=== PATIENT | male | born 1970 | race African-American/Black ===

== ENCOUNTER 2018-06-10 14:11 | Inpatient (IN) ==
[2018-06-10 16:09] LABS: Baso # (Auto) 0.1 th/mm3 (0.0-0.2); Baso % (Auto) 0.9 % (0.0-2.0); Eos % (Auto) 0.6 % (0.0-4.0); Hematocrit 51.3 % (39.0-51.0); Hemoglobin 17.3 gm/dL (13.0-17.0); Lymph # (Auto) 1.4 th/mm3 (1.0-4.8); Lymph % (Auto) 20.6 % (9.0-44.0); Mean Corpuscular HGB Conc 33.7 % (32.0-36.0); Mean Corpuscular Hemoglobin 29.7 pg (27.0-34.0); Mean Corpuscular Volume 88.3 fL (80.0-100.0); Mean Platelet Volume 9.1 fL (7.0-11.0); Mono # (Auto) 0.6 th/mm3 (0.0-0.9); Mono % (Auto) 8.2 % (0.0-8.0); Neut # (Auto) 4.8 th/mm3 (1.8-7.7); Neut % (Auto) 69.7 % (16.0-70.0); Platelet Count 255 th/mm3 (150-450); Red Blood Count 5.82 mil/mm3 (4.50-5.90); Red Cell Distribution Width 13.4 % (11.6-17.2); White Blood Count 6.9 th/mm3 (4.0-11.0)
[2018-06-10 16:39] LABS: Albumin 4.3 g/dL (3.4-5.0); Anion Gap 11 meq/L (5-15); Aspartate Aminotransferase 25 U/L (15-37); Blood Urea Nitrogen 27 mg/dL (7-18); Calcium 9.5 mg/dL (8.5-10.1); Carbon Dioxide 25.7 meq/L (21.0-32.0); Chloride 106 meq/L (98-107); Glomerular Filtration Rate 40 mL/min (>89); Glucose,Random 115 mg/dL (74-106); Magnesium 2.8 mg/dL (1.5-2.5); Potassium 3.3 meq/L (3.5-5.1); Sodium 143 meq/L (136-145)
[2018-06-10 16:45] LABS: Alanine Aminotransferase 30 U/L (12-78); Alkaline Phosphatase 88 U/L (45-117); Creatine Kinase 581 U/L (39-308); Total Protein 8.7 g/dL (6.4-8.2)
[2018-06-10] MEDS ORDERED: Sod Chloride 0.9% Inj 1,000 ML IV.SIG ONE ×2 (16:46→18:10)
--- NOTE | 2018-06-10 16:50 | CT ---
EXAM DATE: 06/10/2018 4:31 PM EDT AGE/SEX: 47 years / Male INDICATIONS: Has fallen numerous times over the past weak, increased left sided weakness and slurred speech. CLINICAL DATA: This is the patient's initial encounter. Patient reports that signs and symptoms have been present for 1 week and indicates a pain score of Nonresponsive. MEDICAL/SURGICAL HISTORY: Hypertension. CVA four years ago. . RADIATION DOSE: 43.36 CTDI (mGy) COMPARISON: No prior exams available for comparison. TECHNIQUE: CT of the head without contrast. Using automated exposure control and adjustment of the mA and/or kV according to patient size, radiation dose was kept as low as reasonably achievable to ob tain optimal diagnostic quality images. DICOM format image data is available electronically for revi ew and comparison. FINDINGS: Cerebrum: The ventricles are normal for age. There is decreased density in the cerebral white matter . There appears to be an old lacunar infarct at the anterior right thalamus. No evidence of midline s hift, mass lesion, hemorrhage or acute infarction. No extraaxial fluid collections are seen. Posterior Fossa: The cerebellum and brainstem are intact. The 4th ventricle is midline. The cerebe llopontine angle is unremarkable. Extracranial: The visualized portion of the orbits is intact. Skull: The calvaria is intact. No evidence of skull fracture. CONCLUSION: 1. No acute abnormality seen. No areas of hemorrhage or mass effect are seen. 2. Decreased density in the periventricular white matter related to fairly widespread demyelination. 3. Old lacunar infarct at the right thalamus. Electronically signed by: Carroll Wilson MD 06/10/2018 4:49 PM EDT
[2018-06-10 16:56] LABS: CKMB Percent 0.6 % (0.0-4.0); Creatine Kinase MB 3.6 ng/mL (0.5-3.6)
--- NOTE | 2018-06-10 16:59 | ED ---
HPI General Stated complaint: Poss stroke Time Seen by Provider: 06/10/18 15:27 Source: patient and family Mode of arrival: ambulatory Limitations: physical limitation History of Present Illness HPI narrative: Patient is a 47-year-old male presenting to emerge from it with his mother for evaluation of increased falls. Patient has a history of CVA, he has residual left-sided weakness. Mother states she found him on the floor 2 days ago. Mother also reports that he has been laying in bed more and not getting up and doing what he normally would do. Patient denies any complaints at this time. Patient normally ambulates with a cane. Patient is a poor historian. Patient denies any complaints at this time. Onset (ago): week(s) Related Data Home Medications Medication Instructions Recorded Confirmed amlodipine 10 mg PO DAILY 06/10/18 06/10/18 hydrochlorothiazide 25 mg PO QAM 06/10/18 06/10/18 lisinopril 40 mg PO DAILY 06/10/18 06/10/18 Allergies Allergy/AdvReac Type Severity Reaction Status Date / Time No Known Allergies Allergy Unverified 06/10/18 15:32 Review of Systems Except as stated in HPI: all other systems reviewed are negative [facility] Medical History Medical History Hypertension (Acute) Stroke (Acute) Social History Social History Substance History: No History of Abuse Second Hand Smoke Exposure: No Smoking Status: Former smoker Tobacco Type: Cigarettes How Often Do You Have a Drink Containing Alcohol: 2 to 4 times a month Recent Travel in [facility] within the Last 8 Weeks: No Recent Out of Country Travel within the Last 8 Weeks: No Immunization History Tetanus Immunization: Unsure Hx Influenza Vaccine This Season: Yes Exam Narrative Exam Narrative: GENERAL: Well-developed, well-nourished, well-appearing male. Presenting in no acute distress. SKIN: Focused skin assessment warm/dry. HEAD: Atraumatic. Normocephalic. EYES: Pupils equal and round. No scleral icterus. No injection or drainage. ENT: No nasal bleeding or discharge. Mucous membranes pink and moist. NECK: Trachea midline. No JVD. CARDIOVASCULAR: Regular rate and rhythm. No murmur appreciated. RESPIRATORY: No accessory muscle use. Clear to auscultation. Breath sounds equal bilaterally. GASTROINTESTINAL: Abdomen soft, non-tender, nondistended. Hepatic and splenic margins not palpable. MUSCULOSKELETAL: No obvious deformities. No clubbing. No cyanosis. No edema. NEUROLOGICAL: Awake and alert. 3-5 strength on the left upper and lower extremities. Left residual facial drooping. 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 PSYCHIATRIC: Inappropriate mood and affect; insight and judgment normal. Course Initial Documented Vital Signs Temperature 98.9 F 06/10/18 14:25 Pulse Rate 99 H 06/10/18 14:25 Respiratory Rate 16 06/10/18 14:25 Blood Pressure 131/66 06/10/18 14:25 Pulse Oximetry 98 06/10/18 14:25 Last Documented Vital Signs Temperature 98.1 F 06/12/18 12:00 Pulse Rate 77 06/12/18 12:00 Respiratory Rate 16 06/12/18 12:00 Blood Pressure 164/101 H 06/12/18 12:00 Pulse Oximetry 98 06/12/18 12:00 Medical Decision Making [facility] Narrative Medical decision making narrative: Patient presented with his mother for evaluation of increased falls. Patient with residual left-sided weakness. Labs imaging ordered and pending. Labs reviewed, BUN and creatinine elevated /.18, we have no recent priors to compare to at this time we will assume is a new finding. Potassium 3.3, patient was given oral replacement. CT is unremarkable. Due to increased falls , weakness and acute kidney injury patient be admitted. Discussed with my attending physician. Lab Data Lab results reviewed: Yes I reviewed the patient's lab results. Result diagrams: 06/11/18 07:10 06/12/18 07:33 Lab Results 06/10/18 06/10/18 06/10/18 Range/Units 15:46 15:46 15:46 WBC 6.9 (4.0-11.0) th/mm3 RBC 5.82 (4.50-5.90) mil/mm3 Hgb 17.3 H (13.0-17.0) gm/dL Hct 51.3 H (39.0-51.0) % MCV 88.3 (80.0-100.0) fL MCH 29.7 (27.0-34.0) pg MCHC 33.7 (32.0-36.0) % RDW 13.4 (11.6-17.2) % Plt Count 255 (150-450) th/mm3 MPV 9.1 (7.0-11.0) fL Prelim Diff (Auto) Slide review pending Neut % (Auto) 69.7 (16.0-70.0) % Lymph % (Auto) 20.6 (9.0-44.0) % [place] % (Auto) 8.2 H (0.0-8.0) % Eos % (Auto) 0.6 (0.0-4.0) % Baso % (Auto) 0.9 (0.0-2.0) % Neut # (Auto) 4.8 (1.8-7.7) th/mm3 Lymph # (Auto) 1.4 (1.0-4.8) th/mm3 [place] # (Auto) 0.6 (0.0-0.9) th/mm3 Eos # (Auto) 0.0 (0.0-0.4) th/mm3 Baso # (Auto) 0.1 (0.0-0.2) th/mm3 WBC Differential . Diff Scan Auto diff confirmed Differential Comment . Sodium 143 (136-145) meq/L Potassium 3.3 L (3.5-5.1) meq/L Chloride 106 (98-107) meq/L Carbon Dioxide 25.7 (21.0-32.0) meq/L Anion Gap 11 (5-15) meq/L BUN 27 H (7-18) mg/dL Creatinine 2.18 H (0.60-1.30) mg/dL Estimated GFR 40 L (>89) mL/min Random Glucose 115 H (74-106) mg/dL Hemoglobin A1c (4.3-6.0) % Calcium 9.5 (8.5-10.1) mg/dL Magnesium 2.8 H (1.5-2.5) mg/dL Total Bilirubin 0.7 (0.2-1.0) mg/dL AST 25 (15-37) U/L ALT 30 (12-78) U/L Alkaline Phosphatase 88 (45-117) U/L Total Creatine Kinase 581 H (39-308) U/L CK-MB (CK-2) 3.6 (0.5-3.6) ng/mL CK-MB (CK-2) % 0.6 (0.0-4.0) % Troponin I Less than 0.02 L (0.02-0.05) ng/mL Total Protein 8.7 H (6.4-8.2) g/dL Albumin 4.3 (3.4-5.0) g/dL Triglycerides (42-150) mg/dL Cholesterol (120-200) mg/dL LDL Cholesterol, Calc (0-99) mg/dL HDL Cholesterol (40.0-60.0) mg/dL Cholesterol/HDL Ratio Ratio Urine Color (Yellw/Straw) Urine Clarity (Clear) Urine pH (5.0-8.5) Ur Specific [place] (1.002-1.035) Urine Protein (Neg-Trace) mg/dL Urine Glucose (UA) (Negative) mg/dL Urine Ketones (Negative) mg/dL Urine Occult Blood (Negative) Urine Nitrate (Negative) Urine Bilirubin (Negative) Urine Urobilinogen (Less than 2) mg/dL Ur Leukocyte Esterase (Negative) Urine RBC (0-3) /hpf Urine WBC (0-5) /hpf Ur Squamous Epith Cells (0-5) /hpf Hyaline Casts (0-3) /lpf Granular Casts (None) /lpf Urine Mucus (Occasional) /lpf Micro UA Comment Urine Culture Comments Serum Alcohol Less than 3 (0-5) mg/dL 06/10/18 06/11/18 06/11/18 Range/Units 23:10 07:10 07:10 WBC 4.2 (4.0-11.0) th/mm3 RBC 4.95 (4.50-5.90) mil/mm3 Hgb 14.9 D (13.0-17.0) gm/dL Hct 43.9 (39.0-51.0) % MCV 88.7 (80.0-100.0) fL MCH 30.2 (27.0-34.0) pg MCHC 34.0 (32.0-36.0) % RDW 13.6 (11.6-17.2) % Plt Count 195 (150-450) th/mm3 MPV 8.5 (7.0-11.0) fL Prelim Diff (Auto) Neut % (Auto) 54.3 (16.0-70.0) % Lymph % (Auto) 33.8 (9.0-44.0) % [place] % (Auto) 8.7 H (0.0-8.0) % Eos % (Auto) 1.9 (0.0-4.0) % Baso % (Auto) 1.3 (0.0-2.0) % Neut # (Auto) 2.3 (1.8-7.7) th/mm3 Lymph # (Auto) 1.4 (1.0-4.8) th/mm3 [place] # (Auto) 0.4 (0.0-0.9) th/mm3 Eos # (Auto) 0.1 (0.0-0.4) th/mm3 Baso # (Auto) 0.1 (0.0-0.2) th/mm3 WBC Differential . Diff Scan Differential Comment Auto diff final Sodium 144 (136-145) meq/L Potassium 3.3 L (3.5-5.1) meq/L Chloride 108 H (98-107) meq/L Carbon Dioxide 28.7 (21.0-32.0) meq/L Anion Gap 7 (5-15) meq/L BUN 22 H (7-18) mg/dL Creatinine 1.50 H (0.60-1.30) mg/dL Estimated GFR 61 L (>89) mL/min Random Glucose 102 (74-106) mg/dL Hemoglobin A1c (4.3-6.0) % Calcium 8.9 (8.5-10.1) mg/dL Magnesium (1.5-2.5) mg/dL Total Bilirubin (0.2-1.0) mg/dL AST (15-37) U/L ALT (12-78) U/L Alkaline Phosphatase (45-117) U/L Total Creatine Kinase (39-308) U/L CK-MB (CK-2) (0.5-3.6) ng/mL CK-MB (CK-2) % (0.0-4.0) % Troponin I (0.02-0.05) ng/mL Total Protein (6.4-8.2) g/dL Albumin (3.4-5.0) g/dL Triglycerides (42-150) mg/dL Cholesterol (120-200) mg/dL LDL Cholesterol, Calc (0-99) mg/dL HDL Cholesterol (40.0-60.0) mg/dL Cholesterol/HDL Ratio Ratio Urine Color Ele (Yellw/Straw) Urine Clarity Hazy H (Clear) Urine pH 5.0 (5.0-8.5) Ur Specific [place] 1.027 (1.002-1.035) Urine Protein 30 H (Neg-Trace) mg/dL Urine Glucose (UA) Negative (Negative) mg/dL Urine Ketones 20 (Negative) mg/dL Urine Occult Blood Negative (Negative) Urine Nitrate Negative (Negative) Urine Bilirubin Negative (Negative) Urine Urobilinogen 2.0 H (Less than 2) mg/dL Ur Leukocyte Esterase Negative (Negative) Urine RBC 2 (0-3) /hpf Urine WBC 3 (0-5) /hpf Ur Squamous Epith Cells <1 (0-5) /hpf Hyaline Casts 34 (0-3) /lpf Granular Casts 7 (None) /lpf Urine Mucus Few H (Occasional) /lpf Micro UA Comment Culture not ind Urine Culture Comments Culture not ind Serum Alcohol (0-5) mg/dL 06/11/18 06/11/18 06/12/18 Range/Units 07:10 07:10 07:33 WBC (4.0-11.0) th/mm3 RBC (4.50-5.90) mil/mm3 Hgb (13.0-17.0) gm/dL Hct (39.0-51.0) % MCV (80.0-100.0) fL MCH (27.0-34.0) pg MCHC (32.0-36.0) % RDW (11.6-17.2) % Plt Count (150-450) th/mm3 MPV (7.0-11.0) fL Prelim Diff (Auto) Neut % (Auto) (16.0-70.0) % Lymph % (Auto) (9.0-44.0) % [place] % (Auto) (0.0-8.0) % Eos % (Auto) (0.0-4.0) % Baso % (Auto) (0.0-2.0) % Neut # (Auto) (1.8-7.7) th/mm3 Lymph # (Auto) (1.0-4.8) th/mm3 [place] # (Auto) (0.0-0.9) th/mm3 Eos # (Auto) (0.0-0.4) th/mm3 Baso # (Auto) (0.0-0.2) th/mm3 WBC Differential Diff Scan Differential Comment Sodium 145 (136-145) meq/L Potassium 3.9 (3.5-5.1) meq/L Chloride 112 H (98-107) meq/L Carbon Dioxide 25.7 (21.0-32.0) meq/L Anion Gap 7 (5-15) meq/L BUN 14 (7-18) mg/dL Creatinine 1.38 H (0.60-1.30) mg/dL Estimated GFR 67 L (>89) mL/min Random Glucose 77 (74-106) mg/dL Hemoglobin A1c 5.3 (4.3-6.0) % Calcium 8.7 (8.5-10.1) mg/dL Magnesium (1.5-2.5) mg/dL Total Bilirubin (0.2-1.0) mg/dL AST (15-37) U/L ALT (12-78) U/L Alkaline Phosphatase (45-117) U/L Total Creatine Kinase (39-308) U/L CK-MB (CK-2) (0.5-3.6) ng/mL CK-MB (CK-2) % (0.0-4.0) % Troponin I (0.02-0.05) ng/mL Total Protein (6.4-8.2) g/dL Albumin (3.4-5.0) g/dL Triglycerides 106 (42-150) mg/dL Cholesterol 131 (120-200) mg/dL LDL Cholesterol, Calc 69 (0-99) mg/dL HDL Cholesterol 40.5 (40.0-60.0) mg/dL Cholesterol/HDL Ratio 3.23 Ratio Urine Color (Yellw/Straw) Urine Clarity (Clear) Urine pH (5.0-8.5) Ur Specific [place] (1.002-1.035) Urine Protein (Neg-Trace) mg/dL Urine Glucose (UA) (Negative) mg/dL Urine Ketones (Negative) mg/dL Urine Occult Blood (Negative) Urine Nitrate (Negative) Urine Bilirubin (Negative) Urine Urobilinogen (Less than 2) mg/dL Ur Leukocyte Esterase (Negative) Urine RBC (0-3) /hpf Urine WBC (0-5) /hpf Ur Squamous Epith Cells (0-5) /hpf Hyaline Casts (0-3) /lpf Granular Casts (None) /lpf Urine Mucus (Occasional) /lpf Micro UA Comment Urine Culture Comments Serum Alcohol (0-5) mg/dL Imaging Data Radiologist's impression: Head CT 06/10/18 15:40 CONCLUSION: 1. No acute abnormality seen. No areas of hemorrhage or mass effect are seen. 2. Decreased density in the periventricular white matter related to fairly widespread demyelination. 3. Old lacunar infarct at the right thalamus. Carotid Doppler Study 06/11/18 00:00 CONCLUSION: Abnormal left carotid. CT angiography may be of benefit to evaluate the arch and left carotid bifurcation. Head MRI 06/11/18 00:00 CONCLUSION: Small punctate area of acute infarction. At the pompa-white junction in the posterior right temporal region characteristic of acute infarct There is extensive restricted diffusion involving the corpus callosum on the left side. This is unusual for typical vascular disease and considering the extensive white matter abnormalities this may reflect multiple sclerosis. Correlation with clinical findings is recommended. Neck MRA 06/11/18 00:00 CONCLUSION: 1. Both the right and left carotid appear patent. There is no hemodynamically significant stenosis. 2. Extreme tortuosity was compromising the ultrasound exam. _ Percent stenosis is calculated using the diameter of the stenotic region over the diameter of the normal distal internal carotid artery _ Reviewed radiologists report. Discharge Plan Discharge Disposition Patient Disposition: 30 Still Patient Discharge Condition Condition: Stable Discharge Details Diagnosis: Weakness, SINGH (acute kidney injury), Frequent falls, Hypokalemia Physicians Team ED Provider: Jasper Haq ED Midlevel Provider: Karin Max Primary Care Provider: UNKNOWN, Attending Provider: Libby Joaquin Other Providers: Francisca Belcher ; [facility],Insurance Status ED Status: Left Department Discharge Information Discharge Date/Time: 06/10/18 20:58
--- NOTE | 2018-06-10 19:49 | P.HPFP ---
History of Present Illness Primary Care Physician: UNKNOWN History of Present Illness: Patient is a 47 year old M with pmhx of CVA with residual left sided weakness who presents to the ED for evaluation of increased falls. Patient reports a 1 day history of not feeling like himself and a feeling of unsteadiness. This feeling began earlier this morning. Although he now feels more like himself he still feels uneasy and will not attempt to walk for fear of falling. Patient lives with his cousin who works in the medical field and suggested he seek medial attention. Patient reports dizziness earlier today that self resolved after a few minutes, experienced momentary double vision in his left eye but at no time loss any motor function, sensation, or consciousness. He reports no falls today and denies any chest pain, recent illnesses, nausea, vomiting, fevers or chills. - Diagnosis (1) Weakness (2) SINGH (acute kidney injury) (3) Frequent falls (4) Hypokalemia (5) Nutrition, metabolism, and development symptoms Inpatient Certification: I certify that the inpatient services were ordered in accordance with Medicare regulations governing the order. This includes certification that hospital inpatient services are reasonable and necessary and in the case of services not specified as inpatient-only under 42 CFR 419.22(n), that they are appropriately provided as inpatient services in accordance to with the 2-midnight benchmark under 43 CFR 412.3(e) Review of Systems Constitutional: Denies chills, Denies excessive sweating, Denies fatigue, Denies fever(s), Denies headache(s), Denies malaise Eyes: Reports change in vision, Reports double vision, Denies blind spots, Denies floaters, Denies loss of vision, Denies pain Cardiovascular: Denies chest pain, Denies excessive sweating, Denies fainting, Denies fast heart rate, Denies irregular heart rhythm, Denies rapid, pounding, or irregular heartbeat, Denies shortness of breath Respiratory: Denies chest congestion, Denies cough, Denies shortness of breath, Denies shortness of breath with activity, Denies wheezing Gastrointestinal: Denies abdominal pain, Denies change in bowel habits, Denies incontinent of stools, Denies vomiting Musculoskeletal: Reports abnormal walking, Reports muscle weakness, Denies body aches Comments: Patient reports feeling unsteady and has reported frequent recent falls. Neurologic: Reports abnormal walking, Reports dizziness, Reports frequent falls , Reports other visual disturbances, Reports unsteadiness, Reports weakness, Denies abnormal hearing, Denies abnormal movements, Denies abnormal speech, Denies behavioral changes, Denies burning sensations, Denies confusion, Denies headache(s), Denies memory loss, Denies numbness, Denies convulsions, Denies seizure-like activity, Denies sensory deficit, Denies tremor(s) Psychiatric: Denies hearing things others do not hear Endocrine: Denies rapid, pounding, or irregular heartbeat PMFSH - History History Provided By: Patient, Family Member - Medical History Medical History: Medical History (Last Reviewed 06/10/18 @ 16:58 by BEE Wisdom) Hypertension Stroke - Tobacco History Second Hand Smoke Exposure: No Tobacco Use In Past 30 Days: No Smoking Status: Former smoker - Alcohol History How Often Do You Have a Drink Containing Alcohol: 2 to 4 times a month - Substance Use History Substance History: No History of Abuse - Travel History Recent Travel in the [facility] Within the Last 8 Weeks: No Recent Travel Out of the Country Within the Last 8 Weeks: No - Immunization History Tetanus Immunization: Unsure Hx Influenza Vaccine This Season: Yes Medications and Allergies Active Medications: Active Medications Sodium Chloride (Ns Flush) 2 ml IV.FLUSH PRN PRN PRN Reason: FLUSH AFTER USING IV ACCESS Allergies Allergy/AdvReac Type Severity Reaction Status Date / Time No Known Allergies Allergy Unverified 06/10/18 15:32 Home Medications Medication Instructions Recorded Confirmed Type amlodipine 10 mg PO DAILY 06/10/18 06/10/18 History hydrochlorothiazide 25 mg PO QAM 06/10/18 06/10/18 History lisinopril 40 mg PO DAILY 06/10/18 06/10/18 History Exam Vital signs: Vital Signs 06/10/18 14:25 06/10/18 14:37 06/10/18 18:34 Temperature 98.9 F Pulse Rate 99 H 64 Respiratory Rate 16 Blood Pressure 131/66 121/68 Pulse Oximetry 98 98 100 Intake & Output 06/10/18 06/10/18 06/11/18 06:59 18:59 06:59 Weight 76.204 kg - Constitutional no acute distress, average body habitus, cooperative - Routine HEENT Exam Head: Present: normocephalic, atraumatic Eye: Present: EOMI, PERRL, normal accommodation ENT: Present: mucous membranes moist, external ear normal. Absent: mucous membranes dry - Routine Neck Exam Present: trachea midline. Absent: lymphadenopathy, tenderness, trauma - Routine Respiratory Exam Present: CTA bilaterally. Absent: accessory muscle use, decreased breath sounds , prolonged expiratory phase, rales, respiratory distress, rhonchi, stridor, wheezes, crackles, distant breath sounds, diminished air movement - Routine Cardiovascular Exam Present: RRR, S1, S2. Absent: murmur, gallop, rubs, irregularly irregular - Routine Abdominal Exam Present: soft, normoactive bowel sounds. Absent: tenderness, distended, rebound , guarding, organomegaly - Routine Extremities Exam Present: pulses intact. Absent: calf tenderness - Routine Skin Exam Present: intact. Absent: cyanosis, erythema - Routine Neurological Exam Present: alert, oriented X3, motor deficit, moving all extremities, vision grossly intact, hearing grossly intact, facial asymmetry. Absent: CN II-XII intact, altered mental status, normal tone, normal speech Patient demonstrates left facial droop due to residual motor deficit from previous CVA. 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 All extremeties functional at baseline. Patient stated that he would not attempt to stand or walk. - Detailed Neurological Exam: Coma Scale Eye Opening: Spontaneous Verbal Response: Oriented Motor Response: Obey commands Tita Coma Scale Total: 15 - Routine Psychiatric Exam Present: normal thought process, cooperative. Absent: anxious, agitated Results - Labs Result diagrams: 06/10/18 15:46 06/10/18 15:46 Abnormal lab results 06/10/18 06/10/18 Range/Units 15:46 15:46 Hgb 17.3 H (13.0-17.0) gm/dL Hct 51.3 H (39.0-51.0) % [place] % (Auto) 8.2 H (0.0-8.0) % Potassium 3.3 L (3.5-5.1) meq/L BUN 27 H (7-18) mg/dL Creatinine 2.18 H (0.60-1.30) mg/dL Estimated GFR 40 L (>89) mL/min Random Glucose 115 H (74-106) mg/dL Magnesium 2.8 H (1.5-2.5) mg/dL Total Creatine Kinase 581 H (39-308) U/L Troponin I Less than 0.02 L (0.02-0.05) ng/mL Total Protein 8.7 H (6.4-8.2) g/dL Short CBC 06/10/18 Range/Units 15:46 WBC 6.9 (4.0-11.0) th/mm3 Hgb 17.3 H (13.0-17.0) gm/dL Hct 51.3 H (39.0-51.0) % Plt Count 255 (150-450) th/mm3 BMP 06/10/18 15:46 Sodium 143 Potassium 3.3 L Chloride 106 Carbon Dioxide 25.7 BUN 27 H Creatinine 2.18 H Calcium 9.5 Cardiac Enzymes 06/10/18 Range/Units 15:46 Total Creatine Kinase 581 H (39-308) U/L CK-MB (CK-2) 3.6 (0.5-3.6) ng/mL Troponin I Less than 0.02 L (0.02-0.05) ng/mL Liver Function 06/10/18 Range/Units 15:46 Total Bilirubin 0.7 (0.2-1.0) mg/dL AST 25 (15-37) U/L ALT 30 (12-78) U/L Alkaline Phosphatase 88 (45-117) U/L Albumin 4.3 (3.4-5.0) g/dL - Imaging Impressions Head CT 06/10/18 15:40 CONCLUSION: 1. No acute abnormality seen. No areas of hemorrhage or mass effect are seen. 2. Decreased density in the periventricular white matter related to fairly widespread demyelination. 3. Old lacunar infarct at the right thalamus. Caprini VTE Risk Assessment Caprini VTE Risk Assessment: Moderate/High Risk (score >= 2) Caprini Risk Assessment Model: Point Value = 1 Point Value = 2 Point Value = 3 Point Value = 5 Age 41-60 Minor surgery BMI > 25 kg/m2 Swollen legs Varicose veins or History of unexplained or recurrent spontaneous Oral contraceptives or hormone replacement Sepsis (< 1 month) Serious lung disease, including pneumonia (< 1 month) Abnormal pulmonary function Acute myocardial infarction Congestive heart failure (< 1 month) History of inflammatory bowel disease Medical patient at bed rest Age 61-74 Arthroscopic surgery Major open surgery (> 45 min) Laparoscopic surgery (> 45 min) Malignancy Confined to bed (> 72 hours) Immobilizing plaster cast Central venous access Age >= 75 History of VTE Family history of VTE Factor V Leiden Prothrombin [id number] Lupus anticoagulant Anticardiolipin antibodies Elevated serum homocysteine Heparin-induced thrombocytopenia Other congenital or acquired thrombophilia Stroke (< 1 month) Elective arthroplasty Hip, pelvis, or leg fracture Acute spinal cord injury (< 1 month) Prophylaxis Regimen: Total Risk Factor Score Risk Level Prophylaxis Regimen 0-1 Low Early ambulation 2 Moderate Order ONE of the following: *Sequential Compression Device (SCD) *Heparin 5000 units SQ BID 3-4 Higher Order ONE of the following medications: *Heparin 5000 units SQ TID *Enoxaparin/Lovenox 40 mg SQ daily (WT < 150 kg, CrCl > 30 mL/min) *Enoxaparin/Lovenox 30 mg SQ daily (WT < 150 kg, CrCl > 10-29 mL/min) *Enoxaparin/Lovenox 30 mg SQ BID (WT < 150 kg, CrCl > 30 mL/min) AND/OR *Sequential Compression Device (SCD) 5 or more Highest Order ONE of the following medications: *Heparin 5000 units SQ TID (Preferred with Epidurals) *Enoxaparin/Lovenox 40 mg SQ daily (WT < 150 kg, CrCl > 30 mL/min) *Enoxaparin/Lovenox 30 mg SQ daily (WT < 150 kg, CrCl > 10-29 mL/min) *Enoxaparin/Lovenox 30 mg SQ BID (WT < 150 kg, CrCl > 30 mL/min) AND *Sequential Compression Device (SCD) Assessment and Plan - Assessment (1) Weakness Code(s): R53.1 - Weakness Status: Acute Plan: Patient presents with generalized feeling of weakness and feeling of "not feeling like myself". 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 At the time of interview mother was not present and patient's history was a times questionable. It is unknown at this time whether there is any new motor, sensory, or executive function deficit. Although a hemorrhagic stroke is not likely due to imaging an ischemic stroke cannot be ruled out. Arrhythmias can also cause momentary syncope as well as orthostatic hypotension. Patient to be worked up with neurologically and cardiovascularly. Patient admitted and out on telemetry. - Trend Troponin - Follow up with ECG - Follow up with Echo - Follow Carotid Doppler - Follow up brain MRI without contrast - Monitor BP - PT Eval and recommendations appreciated (2) SINGH (acute kidney injury) Code(s): N17.9 - Acute kidney failure, unspecified Status: Acute Plan: This patient has no known renal history or history of CHF and at admission his serum creatinine was 2.18. In a presumed previously normal functioning kidney an increase to 2.18 meets criteria for acute kidney injury. This patient also had an H/H 17.3/ 51.3 indicating possible volume low status. In the ED the patient received a 2, 1L boluses of NS. Patient currently on NS maintenance fluid of 116ml/ hr. - Continue IV maintenance fluid - Monitor strict I&Os - Trend kidney function - Avoid any nephro toxic medications or chemicals (3) Frequent falls Code(s): R29.6 - Repeated falls Status: Acute Plan: This patient has residual left sided motor deficit from previous CVA. This patient normal uses walker to ambulate but has had increasing falls even with the use of a cane. Patient is currently being evaluated as stated above. (4) Hypokalemia Code(s): E87.6 - Hypokalemia Status: Acute Plan: On admission patient was found to be volume down as well as suffering from acute kidney injury. He was also found to have slight hypokalemia with a potassium of 3.3. Patient received a 30meq potassium chloride tablet PO. - Repeat labs in the AM. (5) Nutrition, metabolism, and development symptoms Code(s): R63.8 - Other symptoms and signs concerning food and fluid intake Status: Acute Plan: Fluids: Received 2 boluses after admission. On maintenance 116ml/hr NS. Electrolytes: Replete as needed. Nutrition: Cardiac and Renal diet pending swallow eval. DVT prophylaxis: Heparin 5,000 SQ Q8Hr
[2018-06-10] MEDS ORDERED: Aspirin 325 MG Tablet PO ONE (20:40)
[2018-06-10] MEDS ORDERED: hydroCHLOROthiazide 25 MG Tablet PO SCH (20:45)
[2018-06-10] MEDS: Heparin - SQ 10,000 UNITS/ML Vial SQ SCH (23:33)
[2018-06-10] MEDS: Sod Chloride 0.9% Inj 1,000 ML IV.CONT SCH (23:36)
[2018-06-11 00:04] LABS: Bilirubin,Urine Negative (Negative); Clarity,Urine Hazy (Clear); Color,Urine Amber (Yellw/Straw); Glucose,Urine (UA) Negative (Negative); Hyaline Casts,Urine 34 /lpf (0-3); Leukocyte Esterase,Urine Negative (Negative); Mucus,Urine Few /lpf (Occasional); Nitrite,Urine Negative (Negative); Specific Gravity,Urine 1.027 (1.002-1.035); Squamous Epithelial Cell,Urine <1 /hpf (0-5)
[2018-06-11] MEDS: Heparin - SQ 10,000 UNITS/ML Vial SQ SCH ×3 (06:03→21:42)
[2018-06-11 07:34] LABS: Baso # (Auto) 0.1 th/mm3 (0.0-0.2); Baso % (Auto) 1.3 % (0.0-2.0); Eos # (Auto) 0.1 th/mm3 (0.0-0.4); Eos % (Auto) 1.9 % (0.0-4.0); Hematocrit 43.9 % (39.0-51.0); Hemoglobin 14.9 gm/dL (13.0-17.0); Lymph # (Auto) 1.4 th/mm3 (1.0-4.8); Lymph % (Auto) 33.8 % (9.0-44.0); Mean Corpuscular Hemoglobin 30.2 pg (27.0-34.0); Mean Corpuscular Volume 88.7 fL (80.0-100.0); Mean Platelet Volume 8.5 fL (7.0-11.0); Mono # (Auto) 0.4 th/mm3 (0.0-0.9); Mono % (Auto) 8.7 % (0.0-8.0); Neut # (Auto) 2.3 th/mm3 (1.8-7.7); Neut % (Auto) 54.3 % (16.0-70.0); Platelet Count 195 th/mm3 (150-450); Red Blood Count 4.95 mil/mm3 (4.50-5.90); Red Cell Distribution Width 13.6 % (11.6-17.2); White Blood Count 4.2 th/mm3 (4.0-11.0)
[2018-06-11 08:01] LABS: Calcium 8.9 mg/dL (8.5-10.1); Carbon Dioxide 28.7 meq/L (21.0-32.0); Potassium 3.3 meq/L (3.5-5.1)
--- NOTE | 2018-06-11 09:03 | US ---
EXAM DATE: 06/11/2018 9:00 AM EDT AGE/SEX: 47 years / Male INDICATIONS: Syncope. CLINICAL DATA: This is the patient's initial encounter. Patient reports that signs and symptoms have been present for 2 days and indicates a pain score of 0/10. MEDICAL/SURGICAL HISTORY: Hypertension. Stroke. None. COMPARISON: No prior exams available for comparison. VELOCITY PARAMETERS: ICA/CCA Ratio: Right 0.8 , Left 2.0 ICA: Right 59 cm/sec, Left 132 cm/sec CCA: Right 77 cm/sec, Left 65 cm/sec ECA: Right 98 cm/sec, Left 52 cm/sec Vertebral: Right 52 cm/sec antegrade, Left 49 cm/sec antegrade FINDINGS: Right Carotid: No significant plaque is visualized.The waveforms are within normal limits. Left Carotid: Elevated ratio on the left suggesting left carotid disease. Other: Both vertebrals are patent. CONCLUSION: Abnormal left carotid. CT angiography may be of benefit to evaluate the arch and left carotid bifurca tion. Electronically signed by: Jae Wolfe MD 06/11/2018 9:02 AM EDT
--- NOTE | 2018-06-11 09:34 | MR ---
EXAM DATE: 06/11/2018 9:22 AM EDT AGE/SEX: 47 years / Male INDICATIONS: CVA. CLINICAL DATA: This is the patient's initial encounter. Patient reports that signs and symptoms have been present for 2 days and indicates a pain score of 0/10. MEDICAL/SURGICAL HISTORY: Stroke. Hypertension. . Knee/foot surgery. COMPARISON: No prior exams available for comparison. TECHNIQUE: Multiplanar, multisequence examination of the brain was performed without contrast. FINDINGS: MRI of the brain is performed in sagittal, axial and coronal planes. The craniocervical junction and midline structures are unremarkable. There is extensive restricted diffusion involving the corpus kike losum throughout the body towards the left There is a small punctate area of restricted diffusion at the pompa-white junction in the posterior right temporal lobe. Susceptibility weighted images demonstr ate old areas of hemorrhage involving the right thalamus as well as in the external capsule on the ri ght. No acute cortical infarction, acute hemorrhage, mass effect or midline shift is seen.There is se vicky periventricular white matter abnormality with appearance which may reflect multiple sclerosis. T here is also abnormal signal intensity involving the torin at the level of the superior cerebellar ped uncle. Posterior fossa structures are unremarkable. CONCLUSION: Small punctate area of acute infarction. At the pompa-white junction in the posterior right temporal r egion characteristic of acute infarct There is extensive restricted diffusion involving the corpus callosum on the left side. This is unusu al for typical vascular disease and considering the extensive white matter abnormalities this may ref lect multiple sclerosis. Correlation with clinical findings is recommended. Electronically signed by: Jg Kay MD 06/11/2018 9:33 AM EDT
[2018-06-11] MEDS ORDERED: Dextrose 50% in Water 50 ML Vial IV.PUSH PRN (10:20)
--- NOTE | 2018-06-11 10:41 | P.HPFP ---
History of Present Illness Primary Care Physician: UNKNOWN History of Present Illness: Patient is a 47 year old M with pmhx of CVA with residual left sided weakness who presented to the ED for evaluation of increased falls. Patient reported a 1 day history of not feeling like himself and a feeling of unsteadiness. This feeling began earlier the morning of admission. Although he now feels more like himself he still feels uneasy and will not attempt to walk for fear of falling. Patient lives with his cousin who works in the medical field and suggested he seek medial attention. Patient reported dizziness earlier that self resolved after a few minutes, experienced momentary double vision in his left eye but at no time loss any motor function, sensation, or consciousness. He reports no falls today and denies any chest pain, recent illnesses, nausea, vomiting, fevers or chills. His MRI showed evidence of an acute CVA. He had some acute kidney injury and was not able to get gadolinium so the MRI was done without contrast. - Diagnosis (1) Weakness (2) SINGH (acute kidney injury) (3) Frequent falls (4) Hypokalemia (5) Nutrition, metabolism, and development symptoms Inpatient Certification: I certify that the inpatient services were ordered in accordance with Medicare regulations governing the order. This includes certification that hospital inpatient services are reasonable and necessary and in the case of services not specified as inpatient-only under 42 CFR 419.22(n), that they are appropriately provided as inpatient services in accordance to with the 2-midnight benchmark under 43 CFR 412.3(e) Estimated Total Length of Stay (Days): 3 Plans for Post Hospital Care: Not yet determined Review of Systems See review of systems from history and physical done by Dr. Karol CLARKE - History History Provided By: Patient, Family Member - Medical History Medical History: Medical History (Last Reviewed 06/11/18 @ 07:47 by Scotty Argueta) Hypertension Stroke - Tobacco History Second Hand Smoke Exposure: No Tobacco Use In Past 30 Days: No Smoking Status: Former smoker Tobacco Type: Cigarettes - Alcohol History How Often Do You Have a Drink Containing Alcohol: 2 to 4 times a month - Substance Use History Substance History: No History of Abuse - Travel History Recent Travel in the [place] Within the Last 8 Weeks: No Recent Travel Out of the Country Within the Last 8 Weeks: No - Immunization History Tetanus Immunization: Unsure Hx Influenza Vaccine This Season: Yes Medications and Allergies Active Medications: Active Medications Amlodipine Besylate (Norvasc) 10 mg PO DAILY [facility] Aspirin (Aspirin Chew) 81 mg PO DAILY [facility] Atorvastatin Calcium (Lipitor) 10 mg PO HS [facility] Dextrose (D50w Vial) 50 ml IV.PUSH UNSCH PRN PRN Reason: PER HYPOGLYCEMIA PROTOCOL Glucagon (Glucagon Inj) 1 mg OTHER UNSCH PRN PRN Reason: for Hypoglycemia Protocol Heparin Sodium (Porcine) (Heparin Inj) 5,000 units SQ Q8HR [facility] Last Admin: 06/11/18 06:03 Dose: 5,000 units Hydrochlorothiazide (Hydrodiuril) 25 mg PO DAILY [facility] Last Admin: 06/10/18 23:36 Dose: 25 mg Sodium Chloride (Ns Inj) 1,000 mls @ 80 mls/hr IV.CONT .[id number] [facility] Last Admin: 06/10/18 23:36 Dose: 116 mls/hr Lisinopril (Prinivil) 40 mg PO DAILY [facility] Sodium Chloride (Ns Flush) 2 ml IV.FLUSH PRN PRN PRN Reason: FLUSH AFTER USING IV ACCESS Allergies Allergy/AdvReac Type Severity Reaction Status Date / Time No Known Allergies Allergy Unverified 06/10/18 15:32 Home Medications Medication Instructions Recorded Confirmed Type amlodipine 10 mg PO DAILY 06/10/18 06/10/18 History hydrochlorothiazide 25 mg PO QAM 06/10/18 06/10/18 History lisinopril 40 mg PO DAILY 06/10/18 06/10/18 History Exam Vital signs: Vital Signs 06/10/18 14:25 06/10/18 14:37 06/10/18 18:34 Temperature 98.9 F Pulse Rate 99 H 64 Respiratory Rate 16 Blood Pressure 131/66 121/68 Pulse Oximetry 98 98 100 06/10/18 20:00 06/10/18 23:49 06/10/18 23:55 Temperature 98.4 F 99.2 F Pulse Rate 71 60 Respiratory Rate 17 17 Blood Pressure 143/90 H 120/71 Pulse Oximetry 97 96 96 06/11/18 04:00 06/11/18 07:40 06/11/18 07:42 Temperature 98.5 F 98.4 F Pulse Rate 66 70 79 Respiratory Rate 17 16 16 Blood Pressure 140/92 H 156/97 H 170/110 H Pulse Oximetry 98 98 99 Intake & Output 06/10/18 06/11/18 06/11/18 18:59 06:59 18:59 Intake Total 1000 / 1000 1210 / 1210 Balance 1000 / 1000 1210 / 1210 Weight 76.204 kg 76.204 kg Intake: IV 1000 / 1000 1000 / 1000 NS Inj 1,000 ML @ Wide Open IV. 1000 / 1000 1000 / 1000 SIG BOLUS ONE Rx#:[id number] Oral 210 / 210 Other: # Incontinent Voids 4 Weight On Admission 76.204 kg - Constitutional no acute distress, average body habitus, cooperative - Routine HEENT Exam Head: Present: normocephalic, atraumatic. Absent: cushingoid faces, abrasion, laceration, hematoma, CSF rhinorrhea, CSF otorrhea Eye: Present: EOMI, normal accommodation. Absent: periorbital ecchymosis, periorbital swelling, periorbital tenderness, nystagmus ENT: Present: mucous membranes moist, oropharynx clear - Routine Neck Exam Present: supple. Absent: carotid bruit - Routine Chest/Breast/Axilla Exam Chest wall: Absent: tenderness, chest tube - Routine Respiratory Exam Present: CTA bilaterally. Absent: accessory muscle use, patient mechanically ventilated, decreased breath sounds, rales, rhonchi - Routine Cardiovascular Exam Present: RRR. Absent: murmur, gallop, rubs, irregular rhythm, irregularly irregular - Routine Abdominal Exam Present: soft, normoactive bowel sounds. Absent: tenderness, distended, rebound , guarding - Routine Extremities Exam Absent: cyanosis, clubbing - Routine Skin Exam Present: intact. Absent: cyanosis, erythema - Routine Neurological Exam Present: alert (see neuroexam from admission), sensory deficit, motor deficit, moving all extremities. Absent: normal reflexes, altered mental status, clonus Results - Labs Result diagrams: 06/11/18 07:10 06/11/18 07:10 Abnormal lab results 06/10/18 06/10/18 06/10/18 Range/Units 15:46 15:46 23:10 Hgb 17.3 H (13.0-17.0) gm/dL Hct 51.3 H (39.0-51.0) % [place] % (Auto) 8.2 H (0.0-8.0) % Potassium 3.3 L (3.5-5.1) meq/L Chloride (98-107) meq/L BUN 27 H (7-18) mg/dL Creatinine 2.18 H (0.60-1.30) mg/dL Estimated GFR 40 L (>89) mL/min Random Glucose 115 H (74-106) mg/dL Magnesium 2.8 H (1.5-2.5) mg/dL Total Creatine Kinase 581 H (39-308) U/L Troponin I Less than 0.02 L (0.02-0.05) ng/mL Total Protein 8.7 H (6.4-8.2) g/dL Urine Clarity Hazy H (Clear) Urine Protein 30 H (Neg-Trace) mg/dL Urine Urobilinogen 2.0 H (Less than 2) mg/dL Urine Mucus Few H (Occasional) /lpf 06/11/18 06/11/18 Range/Units 07:10 07:10 Hgb (13.0-17.0) gm/dL Hct (39.0-51.0) % [place] % (Auto) 8.7 H (0.0-8.0) % Potassium 3.3 L (3.5-5.1) meq/L Chloride 108 H (98-107) meq/L BUN 22 H (7-18) mg/dL Creatinine 1.50 H (0.60-1.30) mg/dL Estimated GFR 61 L (>89) mL/min Random Glucose (74-106) mg/dL Magnesium (1.5-2.5) mg/dL Total Creatine Kinase (39-308) U/L Troponin I (0.02-0.05) ng/mL Total Protein (6.4-8.2) g/dL Urine Clarity (Clear) Urine Protein (Neg-Trace) mg/dL Urine Urobilinogen (Less than 2) mg/dL Urine Mucus (Occasional) /lpf Short CBC 06/10/18 06/11/18 Range/Units 15:46 07:10 WBC 6.9 4.2 (4.0-11.0) th/mm3 Hgb 17.3 H 14.9 D (13.0-17.0) gm/dL Hct 51.3 H 43.9 (39.0-51.0) % Plt Count 255 195 (150-450) th/mm3 BMP 06/10/18 06/11/18 15:46 07:10 Sodium 143 144 Potassium 3.3 L 3.3 L Chloride 106 108 H Carbon Dioxide 25.7 28.7 BUN 27 H 22 H Creatinine 2.18 H 1.50 H Calcium 9.5 8.9 Cardiac Enzymes 06/10/18 Range/Units 15:46 Total Creatine Kinase 581 H (39-308) U/L CK-MB (CK-2) 3.6 (0.5-3.6) ng/mL Troponin I Less than 0.02 L (0.02-0.05) ng/mL Liver Function 06/10/18 Range/Units 15:46 Total Bilirubin 0.7 (0.2-1.0) mg/dL AST 25 (15-37) U/L ALT 30 (12-78) U/L Alkaline Phosphatase 88 (45-117) U/L Albumin 4.3 (3.4-5.0) g/dL Urine 06/10/18 Range/Units 23:10 Urine Color Ele (Yellw/Straw) Urine Clarity Hazy H (Clear) Urine pH 5.0 (5.0-8.5) Ur Specific [place] 1.027 (1.002-1.035) Urine Protein 30 H (Neg-Trace) mg/dL Urine Glucose (UA) Negative (Negative) mg/dL - Imaging Impressions Head CT 06/10/18 15:40 CONCLUSION: 1. No acute abnormality seen. No areas of hemorrhage or mass effect are seen. 2. Decreased density in the periventricular white matter related to fairly widespread demyelination. 3. Old lacunar infarct at the right thalamus. Carotid Doppler Study 06/11/18 00:00 CONCLUSION: Abnormal left carotid. CT angiography may be of benefit to evaluate the arch and left carotid bifurcation. Head MRI 06/11/18 00:00 CONCLUSION: Small punctate area of acute infarction. At the pompa-white junction in the posterior right temporal region characteristic of acute infarct There is extensive restricted diffusion involving the corpus callosum on the left side. This is unusual for typical vascular disease and considering the extensive white matter abnormalities this may reflect multiple sclerosis. Correlation with clinical findings is recommended. Caprini VTE Risk Assessment Caprini VTE Risk Assessment: Moderate/High Risk (score >= 2) Caprini Risk Assessment Model: Point Value = 1 Point Value = 2 Point Value = 3 Point Value = 5 Age 41-60 Minor surgery BMI > 25 kg/m2 Swollen legs Varicose veins or History of unexplained or recurrent spontaneous Oral contraceptives or hormone replacement Sepsis (< 1 month) Serious lung disease, including pneumonia (< 1 month) Abnormal pulmonary function Acute myocardial infarction Congestive heart failure (< 1 month) History of inflammatory bowel disease Medical patient at bed rest Age 61-74 Arthroscopic surgery Major open surgery (> 45 min) Laparoscopic surgery (> 45 min) Malignancy Confined to bed (> 72 hours) Immobilizing plaster cast Central venous access Age >= 75 History of VTE Family history of VTE Factor V Leiden Prothrombin [id number] Lupus anticoagulant Anticardiolipin antibodies Elevated serum homocysteine Heparin-induced thrombocytopenia Other congenital or acquired thrombophilia Stroke (< 1 month) Elective arthroplasty Hip, pelvis, or leg fracture Acute spinal cord injury (< 1 month) Prophylaxis Regimen: Total Risk Factor Score Risk Level Prophylaxis Regimen 0-1 Low Early ambulation 2 Moderate Order ONE of the following: *Sequential Compression Device (SCD) *Heparin 5000 units SQ BID 3-4 Higher Order ONE of the following medications: *Heparin 5000 units SQ TID *Enoxaparin/Lovenox 40 mg SQ daily (WT < 150 kg, CrCl > 30 mL/min) *Enoxaparin/Lovenox 30 mg SQ daily (WT < 150 kg, CrCl > 10-29 mL/min) *Enoxaparin/Lovenox 30 mg SQ BID (WT < 150 kg, CrCl > 30 mL/min) AND/OR *Sequential Compression Device (SCD) 5 or more Highest Order ONE of the following medications: *Heparin 5000 units SQ TID (Preferred with Epidurals) *Enoxaparin/Lovenox 40 mg SQ daily (WT < 150 kg, CrCl > 30 mL/min) *Enoxaparin/Lovenox 30 mg SQ daily (WT < 150 kg, CrCl > 10-29 mL/min) *Enoxaparin/Lovenox 30 mg SQ BID (WT < 150 kg, CrCl > 30 mL/min) AND *Sequential Compression Device (SCD) Assessment and Plan - Assessment (1) Weakness Code(s): R53.1 - Weakness Status: Acute Plan: Patient presents with generalized feeling of weakness and feeling of "not feeling like myself". 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 At the time of interview mother was not present and patient's history was a times questionable. It is unknown at this time whether there is any new motor, sensory, or executive function deficit. Although a hemorrhagic stroke is not likely due to imaging an ischemic stroke cannot be ruled out. Arrhythmias can also cause momentary syncope as well as orthostatic hypotension. Patient to be worked up neurologically and cardiovascularly. Patient admitted and placed on telemetry. - Trended Troponin - Follow up with ECG - Follow up with Echo - Follow Carotid Doppler - Follow up brain MRI without contrast this showed an acute CVA and neurology was consult he has had a bed was placed flat and his IV fluids were reduced to 80 an hour and he passed a swallow study so he was given a diet. - Monitor BP, blood pressure 1 8 since he had an acute stroke will hold his lisinopril and diuretic. - PT Eval and recommendations appreciated (2) SINGH (acute kidney injury) Code(s): N17.9 - Acute kidney failure, unspecified Status: Acute Plan: This patient has no known renal history or history of CHF and at admission his serum creatinine was 2.18. In a presumed previously normal functioning kidney an increase to 2.18 meets criteria for acute kidney injury. This patient also had an H/H 17.3/ 51.3 indicating possible volume low status. In the ED the patient received a 2, 1L boluses of NS. Patient currently on NS maintenance fluid of 116ml/ hr. - Continue IV maintenance fluid - Monitor strict I&Os - Trend kidney function - Avoid any nephro toxic medications or chemicals -Holding lisinopril and hydrochlorothiazide (3) Frequent falls Code(s): R29.6 - Repeated falls Status: Acute Plan: This patient has residual left sided motor deficit from previous CVA. This patient normally uses walker to ambulate but has had increasing falls even with the use of a cane. Patient is currently being evaluated as stated above. He will be assessed by physical therapy to determine if he needs rehab after his acute stroke (4) Hypokalemia Code(s): E87.6 - Hypokalemia Status: Acute Plan: On admission patient was found to be volume depleted as well as suffering from acute kidney injury. He was also found to have slight hypokalemia with a potassium of 3.3. Patient received a 30meq potassium chloride tablet PO. - Repeat labs in the AM. (5) Nutrition, metabolism, and development symptoms Code(s): R63.8 - Other symptoms and signs concerning food and fluid intake Status: Acute Plan: Fluids: Received 2 boluses after admission. On maintenance 116ml/hr NS. Electrolytes: Replete as needed. Nutrition: Cardiac and Renal diet pending swallow eval. DVT prophylaxis: Heparin 5,000 SQ Q8Hr H&P: Quality - VTE Deep Vein Thrombosis/Pulmonary Embolism Present on Admission: No
[2018-06-11 12:55] LABS: Chol/HDL Ratio 3.23 Ratio; HDL Cholesterol 40.5 mg/dL (40.0-60.0)
--- NOTE | 2018-06-11 14:56 | MB ---
cc: Francisca Belcher MD DATE: 06/11/2018 DATE OF : 1970 AGE: [age] years old. REASON FOR CONSULTATION: Stroke. HISTORY OF PRESENT ILLNESS: The patient is a 47-year-old man who came in with evaluation for falls. He has a history of stroke with some left-sided weakness. Apparently his mother found him on the floor 2 days ago and lying in bed more, not getting up and doing what he normally would. The patient, when I walked in the room is out of bed, trying to get back into bed, had a bowel movement and needing changing, but he is not a very good historian. He states he never was hospitalized here, but he was in [place], so I am guessing most of the workup that has been done from in the past has been there. He denies any right-sided deficits. He admits to the left-sided deficits states. He states he does have some issues with the vision of his left eye, which is not new. PAST MEDICAL HISTORY: Status post stroke. I am not sure how many years ago. He cannot elaborate, etiology unknown, but he has a history of hypertension as well. MEDICATIONS AT HOME: 1. Hydrochlorothiazide-lisinopril 40 mg. 2. Hydrochlorothiazide 25 mg. 3. Amlodipine 10 mg. I do not see any mention of any antiplatelets. SOCIAL HISTORY: Apparently is a former smoker of cigarettes. The patient drinks maybe 2-4 times a month. PHYSICAL EXAMINATION: VITAL SIGNS: Temperature is 98.4, pulse 79, respiratory rate 16, blood pressure 170/110, heart rate was 130 this morning, but was down to 87 over night. NECK: Supple. HEART: Regular. LUNGS: Appear clear. NEUROLOGIC: He is awake and alert. He is dysarthric. He does have a facial droop on the left. This does have a left hemiparesis with increased tone on the left. Usually ambulates with a cane. Right side is intact. Gait is very unsteady; however, he is ambulating around his bed without any equipment, so I will not assess him at this time due to his safety. LABORATORY DATA: Reviewed. Today's hemoglobin 14.9, yesterday was 17.3, white count 4.2, platelets 195,000. Chemistries: Potassium still 3.3. His creatinine yesterday was 2.18, today it is 1.50, GFR 61. Lipids: Cholesterol 131, triglycerides 106, LDL 69, HDL 40.5. Urine: Hazy, 30 protein. Tox screen negative. IMAGING STUDIES: His MRI does show diffusion weighted abnormality over the inferior right temporal region, small punctate infarct, but he also has fairly large sized infarct over the left corpus callosum. His carotid ultrasound also shows increased velocity over the left carotid. Echo is not reported yet; I am not sure it has been done. IMPRESSION: Left hemispheric infarct, etiology of infarcts in this patient at 47 years old is unknown. I would be good to know if he has ever had a hypercoagulable panel. PLAN: Continue to monitor him on telemetry. I will make sure that an echo has been ordered. I would have done a CT angiogram; however, his renal parameters do not allow will it so we will do an MRA of the carotids without contrast initially. Have PT and OT see him as well as speech therapy and maintain slightly elevated blood pressures at this time. Further recommendations will be made. MD GIAN Lewis/LORY , 02:14 PM , 02:53 PM
[2018-06-11 17:00] LABS: Hemoglobin A1c 5.3 % (4.3-6.0)
--- NOTE | 2018-06-11 17:25 | MR ---
EXAM DATE: 06/11/2018 5:18 PM EDT AGE/SEX: 47 years / Male INDICATIONS: Stroke. CLINICAL DATA: This is the patient's initial encounter. Patient reports that signs and symptoms have been present for 1 day and indicates a pain score of 0/10. MEDICAL/SURGICAL HISTORY: Hypertension. CVA. . Orthopaedic. COMPARISON: No prior exams available for comparison. TECHNIQUE: 3D time-of- flight MRA of the extracranial circulation was performed using a neurovascul ar coil. Post processing was performed including rotating sub-volume maximum intensity projections o f each carotid artery, rotating full-volume maximum intensity projections of both carotid arteries, s agittal and coronal sliding thin-slab reformations of each carotid artery, and left oblique sliding t hin-slab reformation through the aortic arch to include the origin of the arch branch vessels. FINDINGS: Exam is limited by motion. Aortic Arch : There is a three-vessel origin of the great vessels from the aorta. No evidence of o stial narrowing. Right Carotid : The right common carotid is unremarkable. The internal carotid is tortuous without h emodynamically significant stenosis. Left Carotid : The left common carotid is tortuous. The origin appears normal. I do not see evidence for stenosis or occlusion. Bifurcation appears normal. Atherosclerotic elongation is evident. Vertebrals : The vertebral arteries have a symmetric diameter. No stenotic lesions are seen. CONCLUSION: 1. Both the right and left carotid appear patent. There is no hemodynamically significant stenosis. 2. Extreme tortuosity was compromising the ultrasound exam. Percent stenosis is calculated using the diameter of the stenotic region over the diameter of the nor mal distal internal carotid artery Electronically signed by: Jae Wolfe MD 06/11/2018 5:24 PM EDT
[2018-06-11] MEDS: amLODIPine 10 MG Tablet PO SCH (17:41)
--- NOTE | 2018-06-11 17:51 | ECG ---
Date Performed: 06/10/2018 Time Performed: 15:55:37 PTAGE: 47 years EKG: Sinus rhythm NONSPECIFIC T-WAVE ABNORMALITY BORDERLINE ECG NO PREVIOUS TRACING DOCTOR: Jeffrey Howell Interpretating Date/Time 06/11/2018 17:50:42
[2018-06-11] MEDS: Sod Chloride 0.9% Inj 1,000 ML IV.CONT SCH ×2 (20:32→21:44)
--- NOTE | 2018-06-11 21:55 | MG ---
cc: Francisca Belcher MD, Dalia MD EEG NUMBER [id number] REFERRING PHYSICIAN: Dr. Roberson. HISTORY: Awake, drowsy, asleep with photic stimulation. MRI showed small area of restricted diffusion at the pompa-white junction, posterior right temporal region and the corpus callosum on the left side. The patient was found on the floor for 2 days by his mother with some left-sided weakness, history of hypertension, stroke, residual left-sided weakness Norvasc. Aspirin Other drugs. INTERPRETATION OF RECORD: The patient has a background rhythm of 8 to 8.5 Hz, 20-40 microvolts. Fairly symmetrical background from attenuation and drowsiness. Photic stimulation with a driving response. IMPRESSION: Overall, fairly normal appearing electroencephalogram without any epileptiform features. Clinical correlation. MD GIAN Lewis/ , 09:31 PM , 09:53 PM
[2018-06-12] MEDS: Heparin - SQ 10,000 UNITS/ML Vial SQ SCH ×4 (05:51→22:00)
[2018-06-12 08:34] LABS: Calcium 8.7 mg/dL (8.5-10.1); Carbon Dioxide 25.7 meq/L (21.0-32.0); Potassium 3.9 meq/L (3.5-5.1)
[2018-06-12] MEDS: amLODIPine 10 MG Tablet PO SCH (10:11)
--- NOTE | 2018-06-12 13:51 | P.PNFP ---
Subjective Interval history: Patient seen at bedside. No acute events overnight. Patient's mother was present and the patient reports feeling well and says he is "blessed". He reported that he wants to do as much for himself as he can. When entering the room the patient was on his belly and half way off of the bed. It was discussed with him that he needs assistance when attempting to move and to not attempt to get out of bed on his own. Patient is motivated for rehabilitation and wants to get stronger. He denies any motor changes, changes in sensation, changes in vision, chest pain, nausea, vomiting, fevers or chills. All questions were answered to his satisfaction. <Joshua Roberson - 06/12/18 13:51> Results - Labs Result diagrams: 06/13/18 07:50 06/13/18 07:50 <Libby Joaquin - 06/13/18 12:13> Abnormal lab results 06/13/18 06/13/18 Range/Units 07:50 07:50 WBC 3.9 L (4.0-11.0) th/mm3 Chloride 110 H (98-107) meq/L Estimated GFR 75 L (>89) mL/min Short CBC 06/13/18 Range/Units 07:50 WBC 3.9 L (4.0-11.0) th/mm3 Hgb 15.1 (13.0-17.0) gm/dL Hct 44.4 (39.0-51.0) % Plt Count 189 (150-450) th/mm3 [facility] 06/13/18 07:50 Sodium 144 Potassium 3.6 Chloride 110 H Carbon Dioxide 24.1 BUN 14 Creatinine 1.26 Calcium 9.2 <Libby Joaquin - 06/13/18 12:13> Abnormal lab results 06/12/18 Range/Units 07:33 Chloride 112 H (98-107) meq/L Creatinine 1.38 H (0.60-1.30) mg/dL Estimated GFR 67 L (>89) mL/min [facility] 06/12/18 07:33 Sodium 145 Potassium 3.9 Chloride 112 H Carbon Dioxide 25.7 BUN 14 Creatinine 1.38 H Calcium 8.7 <Joshua Roberson - 06/12/18 13:51> - Imaging Impressions Head MRA 06/13/18 00:00 CONCLUSION: 1. Irregularity along the posterior wall of the left middle cerebral artery with luminal narrowing approximately 50%. Mild wall irregularity is identified within the bilateral posterior cerebral arteries. <Libby Joaquin - 06/13/18 12:13> Yuridia Neck MRA 06/11/18 00:00 CONCLUSION: 1. Both the right and left carotid appear patent. There is no hemodynamically significant stenosis. 2. Extreme tortuosity was compromising the ultrasound exam. _ Percent stenosis is calculated using the diameter of the stenotic region over the diameter of the normal distal internal carotid artery _ <Joshua Roberson - 06/12/18 13:51> Physical Exam Vital signs: Vital Signs 06/12/18 16:00 06/12/18 20:44 06/12/18 21:00 Temperature 98.6 F 98.1 F Pulse Rate 55 L 69 55 L Respiratory Rate 14 18 Blood Pressure 149/88 H 154/86 H Pulse Oximetry 99 94 L 06/12/18 23:40 06/13/18 04:34 06/13/18 08:00 Temperature 98.0 F 98.1 F 98.1 F Pulse Rate 74 74 68 Respiratory Rate 18 18 20 Blood Pressure 165/96 H 162/88 H 181/98 H Pulse Oximetry 95 95 99 Intake & Output 06/12/18 06/13/18 06/13/18 18:59 06:59 18:59 Intake Total 480 / 480 Balance 480 / 480 Intake: Oral 480 / 480 Other: # Voids 3 <Libby Joaquin - 06/13/18 12:13> Vital Signs 06/11/18 16:00 06/11/18 20:32 06/12/18 00:08 Temperature 98.6 F 96.9 F L 98.4 F Pulse Rate 68 73 62 Respiratory Rate 18 18 18 Blood Pressure 158/98 H 189/98 H 128/72 Pulse Oximetry 98 92 L 94 L 06/12/18 04:21 06/12/18 06:14 06/12/18 07:54 Temperature 98.8 F 98.2 F Pulse Rate 62 60 69 Respiratory Rate 20 16 Blood Pressure 153/88 H 170/104 H Pulse Oximetry 94 L 100 06/12/18 12:00 Temperature 98.1 F Pulse Rate 77 Respiratory Rate 16 Blood Pressure 164/101 H Pulse Oximetry 98 Intake & Output 06/11/18 06/12/18 06/12/18 18:59 06:59 18:59 Intake Total 950 / 950 140 / 140 Output Total / Balance 950 / 950 139 / 139 Intake: IV 950 / 950 NS Inj 1,000 ML @ 80 mls/hr IV. 950 / 950 CONT .[id number] [facility] Rx#:[id number] Oral 140 / 140 Output: Stool Other: # Voids 2 # Urine Diapers 3 Date of Last Bowel Movement 06/11/18 # Bowel Movements 1 <Joshua Roberson 06/12/18 13:51> - Constitutional no acute distress, average body habitus, cooperative <Joshua Roberson [facility] 13:51> - Routine HEENT Exam Head: Present: normocephalic, atraumatic <Joshua Roberson 06/12/18 13:51> Eye: Present: EOMI <Joshua Roberson 06/12/18 13:51> - Routine Respiratory Exam Present: CTA bilaterally. Absent: accessory muscle use, rales, respiratory distress, rhonchi, stridor, wheezes, crackles <Joshua Roberson 06/12/18 13:51> - Routine Cardiovascular Exam Present: RRR, S1, S2. Absent: murmur, gallop, rubs <Joshua Roberson 06/12/18 13:51> - Routine Abdominal Exam Present: soft, normoactive bowel sounds. Absent: tenderness, distended, rebound , guarding <Joshua Roberson 06/12/18 13:51> - Routine Extremities Exam Absent: cyanosis, clubbing, edema <Joshua Roberson 06/12/18 13:51> - Routine Skin Exam Present: intact. Absent: cyanosis, erythema <Joshua Roberson 06/12/18 13:51> - Routine Neurological Exam Present: alert, oriented X3, motor deficit, moving all extremities, vision grossly intact, hearing grossly intact, facial asymmetry. Absent: altered mental status, nystagmus, hemineglect, fasciculations, normal speech <Joshua Roberson 06/12/18 13:51> Patient has motor ability of all extremities but is weaker on his left side. Patient required significant assistance in turning over in bed. His speech is also impaired due to left facial paralysis. <Joshua Roberson 06/12/18 13:51> - Detailed Neurological Exam: Coma Scale Eye Opening: Spontaneous <Joshua Roberson 06/12/18 13:51> Verbal Response: Oriented <Joshua Roberson 06/12/18 13:51> Motor Response: Obey commands <Joshua Roberson 06/12/18 13:51> Given Coma Scale Total: 15 <Joshua Roberson 06/12/18 13:51> - Routine Psychiatric Exam Present: normal affect, normal thought process, cooperative, good insight, good judgment <Joshua Roberson 06/12/18 13:51> Assessment and Plan - Assessment (1) Weakness Code(s): R53.1 - Weakness Status: Acute Plan: Patient presents with generalized feeling of weakness and feeling of "not feeling like myself". 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 At the time of interview mother was not present and patient's history was a times questionable. It is unknown at this time whether there is any new motor, sensory, or executive function deficit. Per brain MRI there was a small punctate area of acute infarction as well as an acute infarct int he posterior right temporal region at the pompa-white junction. EEG was normal. - Follow up with Echo - Neck CT showed atherosclerotic elongation in left carotid artery. - Follow Neuro recommendations - PT Eval and recommendations appreciated (2) SINGH (acute kidney injury) Code(s): N17.9 - Acute kidney failure, unspecified Status: Acute Plan: This patient has no known renal history or history of CHF and at admission his serum creatinine was 2.18. In a presumed previously normal functioning kidney an increase to 2.18 meets criteria for acute kidney injury. This patient also had an H/H 17.3/ 51.3 indicating possible volume low status. In the ED the patient received a 2, 1L boluses of NS. Patient currently on NS maintenance fluid of 116ml/ hr. Today BUN/Cr has improved to 14/ 1.38. - Continue IV maintenance fluid - Monitor strict I&Os - Trend kidney function - Avoid any nephro toxic medications or chemicals - Holding lisinopril and hydrochlorothiazide (3) Frequent falls Code(s): R29.6 - Repeated falls Status: Acute Plan: This patient has residual left sided motor deficit from previous CVA. This patient normally uses walker to ambulate but has had increasing falls even with the use of a cane. Patient is currently being evaluated as stated above. He will be assessed by physical therapy to determine if he needs rehab after his acute stroke (4) Hypokalemia Code(s): E87.6 - Hypokalemia Status: Resolved Plan: On admission patient was found to be volume depleted as well as suffering from acute kidney injury. He was also found to have slight hypokalemia with a potassium of 3.3. Patient received a 30meq potassium chloride tablet PO. Potassium at 3.9 today. (5) Nutrition, metabolism, and development symptoms Code(s): R63.8 - Other symptoms and signs concerning food and fluid intake Status: Acute Plan: Fluids: Received 2 boluses after admission. On maintenance 116ml/hr NS. Electrolytes: Replete as needed. Nutrition: Cardiac and Renal diet pending swallow eval. DVT prophylaxis: Heparin 5,000 SQ Q8Hr <Joshua Roberson - 06/12/18 13:32> (1) CVA (cerebral vascular accident) Code(s): I63.9 - Cerebral infarction, unspecified Status: Acute (2) Frequent falls Code(s): R29.6 - Repeated falls Status: Acute (3) Weakness Code(s): R53.1 - Weakness Status: Acute (4) SINGH (acute kidney injury) Code(s): N17.9 - Acute kidney failure, unspecified Status: Resolved (5) Nutrition, metabolism, and development symptoms Code(s): R63.8 - Other symptoms and signs concerning food and fluid intake Status: Acute <Libby Joaquin M - 06/13/18 12:13> - Assessment and Plan The exam, history, and the medical decision-making described in the above note were completed with the assistance of the resident physician. I reviewed and agree with the findings presented. I attest that I had a [id number] encounter with the patient on the same day, and personally performed and documented my assessment and findings in the medical record. Witnessed patient trying to do whatever he could for himself. He is a kind cooperative man who is very ready to do whatever work needs to be done to be improved and go back home. <Libby Joaquin M - 06/13/18 12:13> <Libby Joaquin M - Last Filed: 06/13/18 12:13> (1) CVA (cerebral vascular accident) Qualifiers: CVA mechanism: occlusion Precerebral and cerebral artery: unspecified cerebral artery Qualified Code(s): I63.50 - Cerebral infarction due to unspecified occlusion or stenosis of unspecified cerebral artery <Libby Joaquin M - Last Filed: 06/13/18 12:13> (1) CVA (cerebral vascular accident) Qualifiers: CVA mechanism: occlusion Precerebral and cerebral artery: unspecified cerebral artery Qualified Code(s): I63.50 - Cerebral infarction due to unspecified occlusion or stenosis of unspecified cerebral artery
[2018-06-12] MEDS: Sod Chloride 0.9% Inj 1,000 ML IV.CONT SCH ×2 (21:32→21:34)
[2018-06-13] MEDS: Heparin - SQ 10,000 UNITS/ML Vial SQ SCH ×2 (06:37→14:58)
[2018-06-13 08:25] LABS: Hematocrit 44.4 % (39.0-51.0); Hemoglobin 15.1 gm/dL (13.0-17.0); Mean Corpuscular HGB Conc 33.9 % (32.0-36.0); Mean Corpuscular Hemoglobin 29.7 pg (27.0-34.0); Mean Corpuscular Volume 87.7 fL (80.0-100.0); Mean Platelet Volume 8.8 fL (7.0-11.0); Platelet Count 189 th/mm3 (150-450); Red Blood Count 5.07 mil/mm3 (4.50-5.90); Red Cell Distribution Width 13.3 % (11.6-17.2); White Blood Count 3.9 th/mm3 (4.0-11.0)
[2018-06-13 08:55] LABS: Calcium 9.2 mg/dL (8.5-10.1); Carbon Dioxide 24.1 meq/L (21.0-32.0); Potassium 3.6 meq/L (3.5-5.1)
--- NOTE | 2018-06-13 10:09 | P.PN ---
Subjective Interval history: eating breakfast no complaints. Physical Exam Vital signs: Vital Signs 06/12/18 12:00 06/12/18 16:00 06/12/18 20:44 Temperature 98.1 F 98.6 F 98.1 F Pulse Rate 77 55 L 69 Respiratory Rate 16 14 18 Blood Pressure 164/101 H 149/88 H 154/86 H Pulse Oximetry 98 99 94 L 06/12/18 21:00 06/12/18 23:40 06/13/18 04:34 Temperature 98.0 F 98.1 F Pulse Rate 55 L 74 74 Respiratory Rate 18 18 Blood Pressure 165/96 H 162/88 H Pulse Oximetry 95 95 06/13/18 08:00 Temperature 98.1 F Pulse Rate 68 Respiratory Rate 20 Blood Pressure 181/98 H Pulse Oximetry 99 Intake & Output 06/12/18 06/13/18 06/13/18 18:59 06:59 18:59 Intake Total 480 / 480 Balance 480 / 480 Intake: Oral 480 / 480 Other: # Voids 3 Narrative: awake eating right gaze left hemiparesis dysarthric dtrs brisk Results - Labs CBC & Chem 7: 06/13/18 07:50 06/13/18 07:50 Laboratory Results - last 24 hr 06/13/18 06/13/18 07:50 07:50 WBC 3.9 L RBC 5.07 Hgb 15.1 Hct 44.4 MCV 87.7 MCH 29.7 MCHC 33.9 RDW 13.3 Plt Count 189 MPV 8.8 Sodium 144 Potassium 3.6 Chloride 110 H Carbon Dioxide 24.1 Anion Gap 10 BUN 14 Creatinine 1.26 Estimated GFR 75 L Random Glucose 80 Calcium 9.2 - Imaging mri brain c/w new infarct left CC punctate right temp. mra ca ok needs cow mra echo pending results Assessment and Plan - Plan new stroke hx prior inf. htn hld check mra cow cont asa 81mg and plavix 75mg.-stop asa in 3 months and cont only plavix 75mg qd. echo pending will need event monitor/holter. pt-ot-st rehab lipids scds/sq heparin.
--- NOTE | 2018-06-13 10:25 | ECHRPT ---
Indication: CVA/TIA CONCLUSIONS The left ventricular systolic function is low normal with an estimated ejection fraction in the rang e of 50- 55%. Mild concentric left ventricular hypertrophy. Normal left ventricular size. Mitral annular calcification is present. [id number] mitral valve regurgitation. There is mild tricuspid valve regurgitation. The estimated pulmonary arterial pressure is 44.6 mmHg. Trivial pulmonary valve regurgitation. BP: / HR: Rhythm: Sinus MEASUREMENTS (Male / Female) Normal Values Technical Quality:Fair 2D ECHO LV Diastolic Diameter PLAX 4.6 cm 4.2 - 5.9 / 3.9 - 5.3 cm LV Systolic Diameter PLAX 3.5 cm IVS Diastolic Thickness 1.1 cm 0.6 - 1.0 / 0.6 - 0.9 cm LVPW Diastolic Thickness 1.1 cm 0.6 - 1.0 / 0.6 - 0.9 cm LV Relative Wall Thickness 0.5 RV Internal Dim ED PLAX 2.6 cm LA Systolic Diameter LX 3.4 cm 3.0 - 4.0 / 2.7 - 3.8 cm M-MODE Aortic Root Diameter MM 2.6 cm LA Systolic Diameter MM 3.1 cm LA Ao Ratio MM 1.2 AV Cusp Separation MM 1.8 cm DOPPLER AV Peak Velocity 145.0 cm/s AV Peak Gradient 8.4 mmHg LVOT Peak Velocity 86.4 cm/s LVOT Peak Gradient 3.0 mmHg MV Area PHT 3.5 cm Mitral E Point Velocity 79.0 cm/s Mitral A Point Velocity 59.2 cm/s Mitral E to A Ratio 1.3 LV E' Lateral Velocity 9.7 cm/s Mitral E to LV E' Lateral Ratio 8.2 LV E' Septal Velocity 11.4 cm/s Mitral E to LV E' Septal Ratio 6.9 TR Peak Velocity 294.0 cm/s TR Peak Gradient 34.6 mmHg Right Atrial Pressure 10.0 mmHg Pulmonary Artery Systolic Pressu 44.6 mmHg Right Ventricular Systolic Press 44.6 mmHg FINDINGS LEFT VENTRICLE The left ventricular systolic function is low normal with an estimated ejection fraction in the rang e of 50- 55%. Mild concentric left ventricular hypertrophy. Normal left ventricular size. RIGHT VENTRICLE Normal right ventricular size and systolic function. LEFT ATRIUM The left atrial size is normal. RIGHT ATRIUM The right atrial size is normal. ATRIAL SEPTUM Normal atrial septal thickness without atrial level shunting by limited color doppler interrogation. AORTA The aortic root and proximal ascending aorta are normal in size on limited imaging. MITRAL VALVE Mitral annular calcification is present. Usba-[id number] mitral valve regurgitation. AORTIC VALVE Trileaflet aortic valve. No aortic valve stenosis or regurgitation. TRICUSPID VALVE Structurally normal tricuspid valve. There is mild tricuspid valve regurgitation. The estimated pulmonary arterial pressure is 44.6 mmHg. PULMONARY VALVE Trivial pulmonary valve regurgitation. VESSELS The inferior vena cava is normal in size. PERICARDIUM No pericardial effusion. Jessica Oro MD (Electronically Signed) Final Date:13 June 2018 10:23
[2018-06-13] MEDS: amLODIPine 10 MG Tablet PO SCH (10:29)
--- NOTE | 2018-06-13 11:20 | MR ---
EXAM DATE: 06/13/2018 11:11 AM EDT AGE/SEX: 47 years / Male INDICATIONS: Altered mental status. CLINICAL DATA: This is the patient's initial encounter. Patient reports that signs and symptoms have been present for 3 days and indicates a pain score of 0/10. MEDICAL/SURGICAL HISTORY: Stroke. . Orthopedic surgeries. COMPARISON: [facility] [place], 06/11/2018. [facility] [place], 06/10/2018. . TECHNIQUE: 3D iaow-ts-iwbray MRA was performed. Source images, multiplanar STS MIP, and 3D volum e MIP reconstructions were reviewed. FINDINGS: There is excellent visualization of the major intracranial arteries out to the second-order branch ve ssels. There is no evidence for aneurysm, vessel truncation or significant stenosis. There is irregu larity along the posterior wall of the left middle cerebral artery with luminal narrowing approximate ly 50% there is also additional mild irregularity of the wall of the bilateral posterior cerebellar a rteries. No significant luminal narrowing. CONCLUSION: 1. Irregularity along the posterior wall of the left middle cerebral artery with luminal narrowing a pproximately 50%. Mild wall irregularity is identified within the bilateral posterior cerebral arteri es. Electronically signed by: Valentina Francis MD 06/13/2018 11:19 AM EDT
--- NOTE | 2018-06-13 12:12 | P.PNFP ---
Subjective Interval history: Mr Recinos feels well this morning. He has had no new neurologic problems. He denies any other issues on his review of systems. He is eating well and drinking well and ready to go for rehab whenever possible. Results - Labs Result diagrams: 06/13/18 07:50 06/13/18 07:50 Abnormal lab results 06/13/18 06/13/18 Range/Units 07:50 07:50 WBC 3.9 L (4.0-11.0) th/mm3 Chloride 110 H (98-107) meq/L Estimated GFR 75 L (>89) mL/min Short CBC 06/13/18 Range/Units 07:50 WBC 3.9 L (4.0-11.0) th/mm3 Hgb 15.1 (13.0-17.0) gm/dL Hct 44.4 (39.0-51.0) % Plt Count 189 (150-450) th/mm3 BMP 06/13/18 07:50 Sodium 144 Potassium 3.6 Chloride 110 H Carbon Dioxide 24.1 BUN 14 Creatinine 1.26 Calcium 9.2 - Imaging Impressions Head MRA 06/13/18 00:00 CONCLUSION: 1. Irregularity along the posterior wall of the left middle cerebral artery with luminal narrowing approximately 50%. Mild wall irregularity is identified within the bilateral posterior cerebral arteries. Physical Exam Vital signs: Vital Signs 06/12/18 12:00 06/12/18 16:00 06/12/18 20:44 Temperature 98.1 F 98.6 F 98.1 F Pulse Rate 77 55 L 69 Respiratory Rate 16 14 18 Blood Pressure 164/101 H 149/88 H 154/86 H Pulse Oximetry 98 99 94 L 06/12/18 21:00 06/12/18 23:40 06/13/18 04:34 Temperature 98.0 F 98.1 F Pulse Rate 55 L 74 74 Respiratory Rate 18 18 Blood Pressure 165/96 H 162/88 H Pulse Oximetry 95 95 06/13/18 08:00 Temperature 98.1 F Pulse Rate 68 Respiratory Rate 20 Blood Pressure 181/98 H Pulse Oximetry 99 Intake & Output 06/12/18 06/13/18 06/13/18 18:59 06:59 18:59 Intake Total 480 / 480 Balance 480 / 480 Intake: Oral 480 / 480 Other: # Voids 3 - Constitutional no acute distress, average body habitus, cooperative - Routine HEENT Exam Head: Present: normocephalic, atraumatic. Absent: cushingoid faces, abrasion, laceration, hematoma, facial swelling Eye: Present: EOMI. Absent: conjunctival icterus, scleral injection, periorbital ecchymosis, periorbital swelling, periorbital tenderness - Routine Neck Exam Present: supple, trachea midline. Absent: swelling - Routine Respiratory Exam Present: CTA bilaterally. Absent: accessory muscle use, patient mechanically ventilated, decreased breath sounds, prolonged expiratory phase, respiratory distress - Routine Cardiovascular Exam Present: RRR. Absent: murmur, gallop, rubs, bradycardia, tachycardia, irregular rhythm, irregularly irregular - Routine Abdominal Exam Present: soft, normoactive bowel sounds. Absent: tenderness, distended, rebound , guarding, firm, rigid - Routine Extremities Exam Present: full ROM. Absent: cyanosis, clubbing, edema, calf tenderness - Routine Skin Exam Present: intact, dry. Absent: cyanosis, erythema, pallor, mottling, petechiae - Routine Neurological Exam Present: alert, oriented X3, CN II-XII intact (slight facial droop on the left with resultant assymetry), motor deficit (Slightly weaker on the right arm and leg), moving all extremities, normal tone, hearing grossly intact. Absent: sensory deficit, pronator drift, nystagmus, hemineglect, fasciculations - Routine Psychiatric Exam Present: normal affect, normal thought process, cooperative. Absent: auditory hallucinations, visual hallucinations Assessment and Plan - Assessment (1) CVA (cerebral vascular accident) Code(s): I63.9 - Cerebral infarction, unspecified Status: Acute Plan: Patient presented with generalized feeling of weakness and feeling of "not feeling like myself". 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 EEG was normal. - Follow up with Echo - Neck CT showed atherosclerotic elongation in left carotid artery. - Follow Neuro recommendations -will decrease blood pressure gradually - PT Eval and recommendations appreciated. We will see if he is a candidate for inpatient rehab as he has old stroke plus new CVA. He is very motivated to gain strength and independence. 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 This patient normally uses walker to ambulate but has had increasing falls even with the use of a cane. Patient is currently being evaluated as stated above. He will be assessed by physical therapy to determine if he needs rehab after his acute stroke His falls were likely from his new CVA and the problems related to that. (3) Weakness Code(s): R53.1 - Weakness Status: Acute Plan: See plan for CVA. (4) SINGH (acute kidney injury) Code(s): N17.9 - Acute kidney failure, unspecified Status: Resolved Plan: This patient has no known renal history or history of CHF and at admission his serum creatinine was 2.18. In a presumed previously normal functioning kidney an increase to 2.18 meets criteria for acute kidney injury. This patient also had an H/H 17.3/ 51.3 indicating possible volume low status. In the ED the patient received a 2, 1L boluses of NS. Patient currently on NS maintenance fluid of 116ml/ hr. Today BUN/Cr has improved to 14/ 1.38. - Continue IV maintenance fluid - Monitor strict I&Os - Trended kidney function - Avoid any nephro toxic medications or chemicals - Holding lisinopril and hydrochlorothiazide. He is improved and can start gradually back on his blood pressure medicines. (5) Nutrition, metabolism, and development symptoms Code(s): R63.8 - Other symptoms and signs concerning food and fluid intake Status: Acute Plan: Fluids: Received 2 boluses after admission. On maintenance 116ml/hr NS. Electrolytes: Replete as needed. Nutrition: Cardiac and Renal diet ordered as he passed his swallowing eval DVT prophylaxis: Heparin 5,000 SQ Q8Hr (1) CVA (cerebral vascular accident) Qualifiers: CVA mechanism: occlusion Precerebral and cerebral artery: unspecified cerebral artery Qualified Code(s): I63.50 - Cerebral infarction due to unspecified occlusion or stenosis of unspecified cerebral artery
[2018-06-13] MEDS: Sod Chloride 0.9% Inj 1,000 ML IV.CONT SCH (14:49)
[2018-06-14] MEDS: Sod Chloride 0.9% Inj 1,000 ML IV.CONT SCH ×2 (04:57→07:46)
[2018-06-14] MEDS: Heparin - SQ 10,000 UNITS/ML Vial SQ SCH ×3 (05:03→21:18)
[2018-06-14] MEDS: amLODIPine 10 MG Tablet PO SCH (08:02)
--- NOTE | 2018-06-14 10:02 | P.PNFP ---
Subjective Interval history: Patient seen at bedside. Overnight patient reported that he tried getting out of bed because he soiled himself for over an hour and while trying to discard something ended up sliding on the floor. Patient sustained to injuries to include head injuries and reports just sliding down to the ground. Patient reports feeling "great" and had no concerns or questions. It was once again discussed with him that he needs assistance when attempting to move and to not attempt to get out of bed on his own as this is dangerous. He denies any motor changes, changes in sensation, changes in vision, chest pain, nausea, vomiting, fevers or chills. <Joshua Roberson - 06/14/18 10:02> Results - Labs Result diagrams: 06/14/18 09:41 06/14/18 09:41 <Libby Joaquin - 06/15/18 13:59> - Imaging Impressions Head MRA 06/13/18 00:00 CONCLUSION: 1. Irregularity along the posterior wall of the left middle cerebral artery with luminal narrowing approximately 50%. Mild wall irregularity is identified within the bilateral posterior cerebral arteries. <Joshua Roberson - 06/14/18 10:02> Physical Exam Vital signs: Vital Signs 06/14/18 16:00 06/14/18 18:31 06/14/18 20:00 Temperature 98 F 97.9 F Pulse Rate 79 84 65 Respiratory Rate 18 18 Blood Pressure 148/83 H 144/91 H Pulse Oximetry 98 97 06/14/18 20:25 06/15/18 00:00 06/15/18 00:05 Temperature 97.9 F Pulse Rate 61 71 74 Respiratory Rate 18 Blood Pressure 149/81 H Pulse Oximetry 98 06/15/18 04:00 06/15/18 08:00 Temperature 98.1 F 98.4 F Pulse Rate 54 L 65 Respiratory Rate 18 16 Blood Pressure 143/87 H 156/99 H Pulse Oximetry 98 96 Intake & Output 06/14/18 06/15/18 06/15/18 18:59 06:59 18:59 Intake Total 2061 200 / 200 Balance 2061 200 / 200 Intake: IV 1162 / 1162 NS Inj 1,000 ML @ 80 mls/hr IV. 1162 / 1162 CONT .[id number] [facility] Rx#:[id number] Oral 900 / 900 200 / 200 Other: # Voids 3 # Incontinent Voids 5 2 Date of Last Bowel Movement 06/14/18 # Bowel Movements 0 1 <Libby Joaquin M - 06/15/18 13:59> Vital Signs 06/13/18 12:00 06/13/18 13:43 06/13/18 17:39 Temperature 98.9 F 98.7 F Pulse Rate 68 75 Respiratory Rate 20 18 Blood Pressure 149/102 H 150/98 H 161/101 H Pulse Oximetry 96 96 06/13/18 21:50 06/14/18 00:50 06/14/18 02:41 Temperature 98.8 F 98.8 F 98.7 F Pulse Rate 66 62 82 Respiratory Rate 19 20 18 Blood Pressure 138/75 125/67 152/89 H Pulse Oximetry 95 96 99 06/14/18 02:46 06/14/18 06:00 Temperature 99.1 F 97.8 F Pulse Rate 82 88 Respiratory Rate 18 18 Blood Pressure 152/89 H 122/63 Pulse Oximetry 97 Intake & Output 06/13/18 06/14/18 06/14/18 18:59 06:59 18:59 Intake Total 1000 / 1000 1600 / 1600 1062 / 1062 Output Total 1600 / 1600 Balance 1000 / 1000 0 / 0 1062 / 1062 Intake: IV 1000 / 1000 1000 / 1000 162 / 162 NS Inj 1,000 ML @ 80 mls/hr IV. 1000 / 1000 1000 / 1000 162 / 162 CONT .[id number] [facility] Rx#:[id number] Oral 600 / 600 900 / 900 Output: Urine 1600 / 1600 Other: # Incontinent Voids 1 5 Date of Last Bowel Movement 06/12/18 # Bowel Movements 0 0 <Joshua Roberson - 06/14/18 10:02> - Constitutional no acute distress, average body habitus, cooperative <Joshua Roberson - 10:02> - Routine HEENT Exam Head: Present: normocephalic, atraumatic <Joshua Roberson - 06/14/18 10:02> Eye: Present: EOMI, normal accommodation. Absent: scleral injection <Joshua Roberson - 06/14/18 10:02> - Routine Respiratory Exam Present: CTA bilaterally. Absent: accessory muscle use, prolonged expiratory phase, rales, respiratory distress, rhonchi, stridor, wheezes, crackles, distant breath sounds <Joshua Roberson 06/14/18 10:02> - Routine Cardiovascular Exam Present: RRR, S1, S2. Absent: murmur, gallop, rubs <Joshua Roberson 06/14/18 10:02> - Routine Abdominal Exam Present: soft, normoactive bowel sounds. Absent: tenderness, distended, rebound , guarding <Joshua Roberson 06/14/18 10:02> - Routine Extremities Exam Present: pulses intact. Absent: cyanosis, clubbing, edema, full ROM, calf tenderness, tenderness <Joshua Roberson 06/14/18 10:02> - Routine Skin Exam Present: intact. Absent: cyanosis, erythema <Joshua Roberson 06/14/18 10:02> - Routine Neurological Exam Present: alert, oriented X3, motor deficit, moving all extremities, facial asymmetry. Absent: CN II-XII intact, sensory deficit, altered mental status < Joshua Roberson 06/14/18 10:02> - Detailed Neurological Exam Cerebellar function: Abnormal finger to nose <Joshua Roberson 06/14/18 10:02> Comments: Patient greatly improved from last exam. Extraocular motor grossly intact. Patient continue to have facial droop but is slight with an impressively noticeable improvement. Patient is able to wrinkle his forehead symmetrically. Assortment Planner strength is 5/5 in right hand and 4/5 in left. RLE is also 5/5 and 4/5 on the left. Patient is able to raise both legs off of the bed. Finger to nose is exam is slow but grossly accurate. No other motor or sensory deficits were noted. <Joshua Roberson 06/14/18 10:02> - Detailed Neurological Exam: Coma Scale Eye Opening: Spontaneous <Joshua Roberson 06/14/18 10:02> Verbal Response: Oriented <Joshua Roberson 06/14/18 10:02> Motor Response: Obey commands <Joshua Roberson 06/14/18 10:02> Noble Coma Scale Total: 15 <Joshua Roberson 06/14/18 20:20> - Routine Psychiatric Exam Present: normal affect, normal thought process, cooperative. Absent: anxious, agitated, paranoid <Joshua Roberson O - 06/14/18 10:02> Assessment and Plan - Assessment (1) CVA (cerebral vascular accident) Code(s): I63.9 - Cerebral infarction, unspecified Status: Acute (2) Frequent falls Code(s): R29.6 - Repeated falls Status: Acute (3) Weakness Code(s): R53.1 - Weakness Status: Acute (4) SINGH (acute kidney injury) Code(s): N17.9 - Acute kidney failure, unspecified Status: Resolved (5) Nutrition, metabolism, and development symptoms Code(s): R63.8 - Other symptoms and signs concerning food and fluid intake Status: Acute <Libby Joaquin M - 06/15/18 13:59> (1) CVA (cerebral vascular accident) Code(s): I63.9 - Cerebral infarction, unspecified Status: Acute Plan: Patient presented with generalized feeling of weakness and feeling of "not feeling like myself". 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 Per brain MRI there was a small punctate area of acute infarction as well as an acute infarct in the posterior right temporal region at the pompa-white junction. EEG was normal. - Follow up with Echo - Neck CT showed atherosclerotic elongation in left carotid artery. - MRA of the head showed irregularity along the posterior wall of the left middle cerebral artery with luminal narrowing of approx 50%. Mild wall irregularity identified within gas appliance installer bilaterally. - Follow Neuro recommendations - Case management working for placement in inpatient rehab as he has old stroke plus new CVA. He is very motivated to gain strength and independence. 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 This patient normally uses walker to ambulate but has had increasing falls even with the use of a cane. Patient is currently being evaluated as stated above. Patient had fall last night after trying to ambulate around his room independently. PT recommendations include inpatient rehab which is currently being organized by case management. (3) Weakness Code(s): R53.1 - Weakness Status: Acute Plan: See plan for CVA. (4) SINGH (acute kidney injury) Code(s): N17.9 - Acute kidney failure, unspecified Status: Resolved Plan: This patient has no known renal history or history of CHF and at admission his serum creatinine was 2.18. In a presumed previously normal functioning kidney an increase to 2.18 meets criteria for acute kidney injury. This patient also had an H/H 17.3/ 51.3 indicating possible volume low status. In the ED the patient received a 2, 1L boluses of NS. Patient currently on NS maintenance fluid of 116ml/ hr. Today BUN/Cr has improved to 14/ 1.26. - Trended kidney function - Avoid any nephro toxic medications or chemicals - Holding lisinopril and hydrochlorothiazide. - He is improved and can start gradually back on his blood pressure medicines. (5) Nutrition, metabolism, and development symptoms Code(s): R63.8 - Other symptoms and signs concerning food and fluid intake Status: Acute Plan: Fluids: IV fluids no longer indicated at this time. Electrolytes: Replete as needed. Nutrition: Cardiac and Renal diet ordered as he passed his swallowing eval DVT prophylaxis: Heparin 5,000 SQ Q8Hr <Joshua Roberson - 06/14/18 20:20> - Assessment and Plan The exam, history, and the medical decision-making described in the above note were completed with the assistance of the resident physician. I reviewed and agree with the findings presented. I attest that I had a [id number] encounter with the patient on the same day, and personally performed and documented my assessment and findings in the medical record. Witnessed patient trying to do whatever he could for himself. He is a kind cooperative man who is very ready to do whatever work needs to be done to be improved and go back home. <Joshua Roberson - 06/14/18 10:02> - Attending Attestation The exam, history, and the medical decision-making described in the above note were completed with the assistance of the resident physician. I reviewed and agree with the findings presented. I attest that I had a [id number] encounter with the patient on the same day, and personally performed and documented my assessment and findings in the medical record. Hopefully he will be able to go to inpatient rehab soon. <Libby Joaquin - 06/15/18 13:59> <Joshua Roberson O - Last Filed: 06/14/18 20:20> (1) CVA (cerebral vascular accident) Qualifiers: CVA mechanism: occlusion Precerebral and cerebral artery: unspecified cerebral artery Qualified Code(s): I63.50 - Cerebral infarction due to unspecified occlusion or stenosis of unspecified cerebral artery <Libby Joaquin M - Last Filed: 06/15/18 13:59> (1) CVA (cerebral vascular accident) Qualifiers: CVA mechanism: occlusion Precerebral and cerebral artery: unspecified cerebral artery Qualified Code(s): I63.50 - Cerebral infarction due to unspecified occlusion or stenosis of unspecified cerebral artery <Joshua Roberson O - Last Filed: 06/14/18 20:20> (1) CVA (cerebral vascular accident) Qualifiers: CVA mechanism: occlusion Precerebral and cerebral artery: unspecified cerebral artery Qualified Code(s): I63.50 - Cerebral infarction due to unspecified occlusion or stenosis of unspecified cerebral artery <Libby Joaquin M - Last Filed: 06/15/18 13:59> (1) CVA (cerebral vascular accident) Qualifiers: CVA mechanism: occlusion Precerebral and cerebral artery: unspecified cerebral artery Qualified Code(s): I63.50 - Cerebral infarction due to unspecified occlusion or stenosis of unspecified cerebral artery
--- NOTE | 2018-06-14 10:50 | P.PNFP ---
Results - Labs Result diagrams: 06/14/18 09:41 06/14/18 09:41 <JemalLibby wilkes M - 06/15/18 13:58> - Imaging Impressions Head MRA 06/13/18 00:00 CONCLUSION: 1. Irregularity along the posterior wall of the left middle cerebral artery with luminal narrowing approximately 50%. Mild wall irregularity is identified within the bilateral posterior cerebral arteries. <Joshua Roberson O - 06/14/18 11:00> Physical Exam Vital signs: Vital Signs 06/14/18 16:00 06/14/18 18:31 06/14/18 20:00 Temperature 98 F 97.9 F Pulse Rate 79 84 65 Respiratory Rate 18 18 Blood Pressure 148/83 H 144/91 H Pulse Oximetry 98 97 06/14/18 20:25 06/15/18 00:00 06/15/18 00:05 Temperature 97.9 F Pulse Rate 61 71 74 Respiratory Rate 18 Blood Pressure 149/81 H Pulse Oximetry 98 06/15/18 04:00 06/15/18 08:00 Temperature 98.1 F 98.4 F Pulse Rate 54 L 65 Respiratory Rate 18 16 Blood Pressure 143/87 H 156/99 H Pulse Oximetry 98 96 Intake & Output 06/14/18 06/15/18 06/15/18 18:59 06:59 18:59 Intake Total 2061 200 / 200 Balance 2061 200 / 200 Intake: IV 1162 / 1162 NS Inj 1,000 ML @ 80 mls/hr IV. 1162 / 1162 CONT .[id number] [facility] Rx#:[id number] Oral 900 / 900 200 / 200 Other: # Voids 3 # Incontinent Voids 5 2 Date of Last Bowel Movement 06/14/18 # Bowel Movements 0 1 <Libby Joaquin M - 06/15/18 13:58> Vital Signs 06/13/18 12:00 06/13/18 13:43 06/13/18 17:39 Temperature 98.9 F 98.7 F Pulse Rate 68 75 Respiratory Rate 20 18 Blood Pressure 149/102 H 150/98 H 161/101 H Pulse Oximetry 96 96 06/13/18 21:50 06/14/18 00:50 06/14/18 02:41 Temperature 98.8 F 98.8 F 98.7 F Pulse Rate 66 62 82 Respiratory Rate 19 20 18 Blood Pressure 138/75 125/67 152/89 H Pulse Oximetry 95 96 99 06/14/18 02:46 06/14/18 06:00 06/14/18 08:00 Temperature 99.1 F 97.8 F Pulse Rate 82 88 69 Respiratory Rate 18 18 16 Blood Pressure 152/89 H 122/63 156/95 H Pulse Oximetry 97 98 Intake & Output 06/13/18 06/14/18 06/14/18 18:59 06:59 18:59 Intake Total 1000 / 1000 1600 / 1600 1062 / 1062 Output Total 1600 / 1600 Balance 1000 / 1000 0 / 0 1062 / 1062 Intake: IV 1000 / 1000 1000 / 1000 162 / 162 NS Inj 1,000 ML @ 80 mls/hr IV. 1000 / 1000 1000 / 1000 162 / 162 CONT .[id number] [facility] Rx#:[id number] Oral 600 / 600 900 / 900 Output: Urine 1600 / 1600 Other: # Incontinent Voids 1 5 Date of Last Bowel Movement 06/12/18 # Bowel Movements 0 0 <Joshua Roberson - 06/14/18 11:00> Assessment and Plan - Assessment (1) CVA (cerebral vascular accident) Code(s): I63.9 - Cerebral infarction, unspecified Status: Acute (2) Frequent falls Code(s): R29.6 - Repeated falls Status: Acute (3) Weakness Code(s): R53.1 - Weakness Status: Acute (4) SINGH (acute kidney injury) Code(s): N17.9 - Acute kidney failure, unspecified Status: Resolved (5) Nutrition, metabolism, and development symptoms Code(s): R63.8 - Other symptoms and signs concerning food and fluid intake Status: Acute <Libby Joaquin - 06/15/18 13:58> (1) CVA (cerebral vascular accident) Code(s): I63.9 - Cerebral infarction, unspecified Status: Acute Plan: Patient presented with generalized feeling of weakness and feeling of "not feeling like myself". 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 Per brain MRI there was a small punctate area of acute infarction as well as an acute infarct in the posterior right temporal region at the pompa-white junction. EEG was normal. - Follow up with Echo - Neck CT showed atherosclerotic elongation in left carotid artery. - MRA of the head showed irregularity along the posterior wall of the left middle cerebral artery with luminal narrowing of approx 50%. Mild wall irregularity identified within foundry tender bilaterally. - Follow Neuro recommendations - Case management working for placement in inpatient rehab as he has old stroke plus new CVA. He is very motivated to gain strength and independence. 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 This patient normally uses walker to ambulate but has had increasing falls even with the use of a cane. Patient is currently being evaluated as stated above. Patient had fall last night after trying to ambulate around his room independently. PT recommendations include inpatient rehab which is currently being organized by case management. (3) Weakness Code(s): R53.1 - Weakness Status: Acute Plan: See plan for CVA. (4) SINGH (acute kidney injury) Code(s): N17.9 - Acute kidney failure, unspecified Status: Resolved Plan: This patient has no known renal history or history of CHF and at admission his serum creatinine was 2.18. In a presumed previously normal functioning kidney an increase to 2.18 meets criteria for acute kidney injury. This patient also had an H/H 17.3/ 51.3 indicating possible volume low status. In the ED the patient received a 2, 1L boluses of NS. Patient currently on NS maintenance fluid of 116ml/ hr. Today BUN/Cr has improved to 14/ 1.26. - Trended kidney function - Avoid any nephro toxic medications or chemicals - Holding lisinopril and hydrochlorothiazide. - He is improved and can start gradually back on his blood pressure medicines. (5) Nutrition, metabolism, and development symptoms Code(s): R63.8 - Other symptoms and signs concerning food and fluid intake Status: Acute Plan: Fluids: IV fluids no longer indicated at this time. Electrolytes: Replete as needed. Nutrition: Cardiac and Renal diet ordered as he passed his swallowing eval DVT prophylaxis: Heparin 5,000 SQ Q8Hr <Joshua Roberson - 06/14/18 20:19> - Assessment and Plan The exam, history, and the medical decision-making described in the above note were completed with the assistance of the resident physician. I reviewed and agree with the findings presented. I attest that I had a [id number] encounter with the patient on the same day, and personally performed and documented my assessment and findings in the medical record. Witnessed patient trying to do whatever he could for himself. He is a kind cooperative man who is very ready to do whatever work needs to be done to be improved and go back home. <Joshua Roberson - 06/14/18 11:00> - Attending Attestation The exam, history, and the medical decision-making described in the above note were completed with the assistance of the resident physician. I reviewed and agree with the findings presented. I attest that I had a [id number] encounter with the patient on the same day, and personally performed and documented my assessment and findings in the medical record. Mr. Recinos is very eager and ready to improve himself and regain his independence back. <Libby Joaquin M - 06/15/18 13:58> <Joshua Roberson O - Last Filed: 06/14/18 20:19> (1) CVA (cerebral vascular accident) Qualifiers: CVA mechanism: occlusion Precerebral and cerebral artery: unspecified cerebral artery Qualified Code(s): I63.50 - Cerebral infarction due to unspecified occlusion or stenosis of unspecified cerebral artery <Libby Joaquin M - Last Filed: 06/15/18 13:58> (1) CVA (cerebral vascular accident) Qualifiers: CVA mechanism: occlusion Precerebral and cerebral artery: unspecified cerebral artery Qualified Code(s): I63.50 - Cerebral infarction due to unspecified occlusion or stenosis of unspecified cerebral artery <Joshua Roberson O - Last Filed: 06/14/18 20:19> (1) CVA (cerebral vascular accident) Qualifiers: CVA mechanism: occlusion Precerebral and cerebral artery: unspecified cerebral artery Qualified Code(s): I63.50 - Cerebral infarction due to unspecified occlusion or stenosis of unspecified cerebral artery <Libby Joaquin M - Last Filed: 06/15/18 13:58> (1) CVA (cerebral vascular accident) Qualifiers: CVA mechanism: occlusion Precerebral and cerebral artery: unspecified cerebral artery Qualified Code(s): I63.50 - Cerebral infarction due to unspecified occlusion or stenosis of unspecified cerebral artery
[2018-06-14 11:09] LABS: Hematocrit 45.9 % (39.0-51.0); Hemoglobin 15.6 gm/dL (13.0-17.0); Mean Corpuscular Hemoglobin 30.1 pg (27.0-34.0); Mean Corpuscular Volume 88.6 fL (80.0-100.0); Platelet Count 204 th/mm3 (150-450); Red Blood Count 5.18 mil/mm3 (4.50-5.90); Red Cell Distribution Width 13.5 % (11.6-17.2); White Blood Count 4.6 th/mm3 (4.0-11.0)
[2018-06-14 11:34] LABS: Calcium 8.8 mg/dL (8.5-10.1); Carbon Dioxide 24.9 meq/L (21.0-32.0); Potassium 3.5 meq/L (3.5-5.1)
[2018-06-15] MEDS: Heparin - SQ 10,000 UNITS/ML Vial SQ SCH ×2 (06:20→13:07)
[2018-06-15] MEDS: amLODIPine 10 MG Tablet PO SCH (08:53)
--- NOTE | 2018-06-15 11:33 | P.PNFP ---
Subjective Interval history: Patient seen and examined this morning by medical team. No acute events overnight per staff. Patient currently has no complaints and denies a complete review systems including but not limited to fevers, chills, shortness breath, chest pain, NVD, abdominal pain, or calf tenderness. Medical team instructed patient to stay in bed and hit his call light if he desires to ambulate/use the restroom. Patient agrees with plan, however multiple reports that patient is getting out of bed on his own without assistance putting him at high risk for fall injury. <Joce Mendoza H - 06/15/18 15:01> Results - Labs Result diagrams: 06/14/18 09:41 06/14/18 09:41 <Libby Joaquin - 06/16/18 11:10> Abnormal lab results 06/14/18 Range/Units 09:41 Sodium 146 H (136-145) meq/L Chloride 112 H (98-107) meq/L Estimated GFR 72 L (>89) mL/min BMP 06/14/18 09:41 Sodium 146 H Potassium 3.5 Chloride 112 H Carbon Dioxide 24.9 BUN 12 Creatinine 1.30 Calcium 8.8 <Joce Mendoza H - 06/15/18 11:33> Physical Exam Vital signs: Vital Signs 06/15/18 12:00 06/15/18 16:00 06/15/18 20:00 Temperature 98 F 97.9 F 97.5 F L Pulse Rate 83 83 78 Respiratory Rate 20 20 18 Blood Pressure 157/92 H 151/93 H 159/102 H Pulse Oximetry 98 97 98 06/16/18 00:00 06/16/18 04:00 06/16/18 08:00 Temperature 98.3 F 98.4 F 97.8 F Pulse Rate 61 59 L 66 Respiratory Rate 18 18 19 Blood Pressure 142/76 H 141/82 H 136/89 Pulse Oximetry 96 97 96 Intake & Output 06/15/18 06/16/18 06/16/18 18:59 06:59 18:59 Weight 83.6 kg Other: # Voids 4 Date of Last Bowel Movement 06/14/18 06/16/18 # Bowel Movements 1 1 <Libby Joaquin M - 06/16/18 11:10> Vital Signs 06/14/18 12:00 06/14/18 16:00 06/14/18 18:31 Temperature 97.9 F 98 F Pulse Rate 77 79 84 Respiratory Rate 17 18 Blood Pressure 154/92 H 148/83 H Pulse Oximetry 98 98 06/14/18 20:00 06/14/18 20:25 06/15/18 00:00 Temperature 97.9 F 97.9 F Pulse Rate 65 61 71 Respiratory Rate 18 18 Blood Pressure 144/91 H 149/81 H Pulse Oximetry 97 98 06/15/18 00:05 06/15/18 04:00 06/15/18 08:00 Temperature 98.1 F 98.4 F Pulse Rate 74 54 L 65 Respiratory Rate 18 16 Blood Pressure 143/87 H 156/99 H Pulse Oximetry 98 96 Intake & Output 06/14/18 06/15/18 06/15/18 18:59 06:59 18:59 Intake Total 2061 200 / 200 Balance 2061 200 / 200 Intake: IV 1162 / 1162 NS Inj 1,000 ML @ 80 mls/hr IV. 1162 / 1162 CONT .[id number] GAL[facility] Rx#:[id number] Oral 900 / 900 200 / 200 Other: # Voids 3 # Incontinent Voids 5 2 Date of Last Bowel Movement 06/14/18 # Bowel Movements 0 1 <Joce Mendoza H - 06/15/18 11:33> Narrative: GENERAL: Well-nourished, well-developed -Citizen Of [place] male lying in bed in no acute distress. SKIN: Warm and dry. No rash. HEENT: Atraumatic, normocephalic with extraocular motions intact. No rhinorrhea. Mild left-sided facial droop, improved from admission exam. No visible lymphadenopathy or jugulovenous distension appreciated. CARDIOVASCULAR: Regular rate and rhythm without obvious murmurs, gallops, or rubs. 2+ pulses in all four extremities. RESPIRATORY: Clear to auscultation bilaterally with no crackles, wheezes, or rhonchi. No increased work of breathing. GASTROINTESTINAL: Abdomen soft, non-tender, nondistended with positive bowel sounds. No masses appreciated. MUSCULOSKELETAL: No cyanosis or edema. No calf tenderness. NEURO/PSYCH: AAO 3. Slowed speech with appropriate judgment. Mild left sided facial droop most prominent at the left corner of the mouth, improved from prior exam. Strength, range of motion, and sensation intact throughout all 4 extremities with only measured deficit is 4/5 wet process miller head strength on the left which is baseline from previous stroke. Patient continues to have overall deconditioned state due to hospitalization.. <Joce Mendoza - 06/15/18 15:01> Assessment and Plan - Assessment (1) CVA (cerebral vascular accident) Code(s): I63.9 - Cerebral infarction, unspecified Status: Acute (2) Frequent falls Code(s): R29.6 - Repeated falls Status: Acute (3) Weakness Code(s): R53.1 - Weakness Status: Acute (4) SINGH (acute kidney injury) Code(s): N17.9 - Acute kidney failure, unspecified Status: Resolved (5) Nutrition, metabolism, and development symptoms Code(s): R63.8 - Other symptoms and signs concerning food and fluid intake Status: Acute <Libby Joaquin - 06/16/18 11:10> (1) CVA (cerebral vascular accident) Code(s): I63.9 - Cerebral infarction, unspecified Status: Acute Plan: Patient presented with generalized feeling of weakness and feeling of "not feeling like myself". 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 Per brain MRI there was a small punctate area of acute infarction as well as an acute infarct in the posterior right temporal region at the pompa-white junction. EEG was normal. - Echo completed, results pending - Neck CT showed atherosclerotic elongation in left carotid artery. - MRA of the head showed irregularity along the posterior wall of the left middle cerebral artery with luminal narrowing of approx 50%. Mild wall irregularity identified within hair or beauty salon manager bilaterally. - Follow Neuro recommendations - Case management working for placement in inpatient rehab as he has old stroke plus new CVA. He is very motivated to gain strength and independence. Placement pending insurance authorization. 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 This patient normally uses walker to ambulate but has had increasing falls even with the use of a cane. Patient is currently being evaluated as stated above. Patient had fall last night after trying to ambulate around his room independently. PT recommendations include inpatient rehab which is currently being organized by case management. -Patient educated to call for nursing staff for assistance when wanting to ambulate/ (3) Weakness Code(s): R53.1 - Weakness Status: Acute Plan: See plan for CVA. -Plan for rehabilitation at facility pending insurance authorization. (4) SINGH (acute kidney injury) Code(s): N17.9 - Acute kidney failure, unspecified Status: Resolved Plan: This patient has no known renal history or history of CHF and at admission his serum creatinine was 2.18. In a presumed previously normal functioning kidney an increase to 2.18 meets criteria for acute kidney injury. This patient also had an H/H 17.3/ 51.3 indicating possible volume low status. In the ED the patient received a 2, 1L boluses of NS. Patient currently on NS maintenance fluid of 116ml/ hr. Today BUN/Cr has improved to 14/ 1.26. - Trended kidney function which has normalized - Avoid any nephro toxic medications or chemicals - Holding lisinopril and hydrochlorothiazide. - He is improved and can start gradually back on his blood pressure medicines. (5) Nutrition, metabolism, and development symptoms Code(s): R63.8 - Other symptoms and signs concerning food and fluid intake Status: Acute Plan: Fluids: IV fluids no longer indicated at this time. Electrolytes: Replete as needed. Nutrition: Cardiac and Renal diet ordered as he passed his swallowing eval DVT prophylaxis: Heparin 5,000 SQ Q8Hr <RejiJoce H - 06/15/18 14:31> - Attending Attestation The exam, history, and the medical decision-making described in the above note were completed with the assistance of the resident physician. I reviewed and agree with the findings presented. I attest that I had a [id number] encounter with the patient on the same day, and personally performed and documented my assessment and findings in the medical record. hopefully his insurance company has [facility] on him in his admission to rehab which he is in dire need of <Libby Joaquin M - 06/16/18 11:10> <oJce Mendoza H - Last Filed: 06/15/18 14:31> (1) CVA (cerebral vascular accident) Qualifiers: CVA mechanism: occlusion Precerebral and cerebral artery: unspecified cerebral artery Qualified Code(s): I63.50 - Cerebral infarction due to unspecified occlusion or stenosis of unspecified cerebral artery <Libby Joaquin M - Last Filed: 06/16/18 11:10> (1) CVA (cerebral vascular accident) Qualifiers: CVA mechanism: occlusion Precerebral and cerebral artery: unspecified cerebral artery Qualified Code(s): I63.50 - Cerebral infarction due to unspecified occlusion or stenosis of unspecified cerebral artery <Joce Mendoza H - Last Filed: 06/15/18 14:31> (1) CVA (cerebral vascular accident) Qualifiers: CVA mechanism: occlusion Precerebral and cerebral artery: unspecified cerebral artery Qualified Code(s): I63.50 - Cerebral infarction due to unspecified occlusion or stenosis of unspecified cerebral artery <Libby Joaquin M - Last Filed: 06/16/18 11:10> (1) CVA (cerebral vascular accident) Qualifiers: CVA mechanism: occlusion Precerebral and cerebral artery: unspecified cerebral artery Qualified Code(s): I63.50 - Cerebral infarction due to unspecified occlusion or stenosis of unspecified cerebral artery
[2018-06-16] MEDS: Heparin - SQ 10,000 UNITS/ML Vial SQ SCH ×4 (00:01→22:34)
[2018-06-16] MEDS: Lisinopril 20 MG Tablet PO SCH (08:02)
[2018-06-16] MEDS: amLODIPine 10 MG Tablet PO SCH (08:24)
--- NOTE | 2018-06-16 16:33 | P.PNFP ---
Subjective Interval history: Patient seen and examined at bedside this morning. No acute events overnight. Patient states he is feeling well and he will like to begin rehab to improve his strength. No other issues or complaints. <Mary Chapin D - 06/16/18 16:32> Results - Labs Result diagrams: 06/14/18 09:41 06/17/18 05:35 <Libby Joaquin M - 06/19/18 14:09> Physical Exam Vital signs: Vital Signs 06/15/18 20:00 06/16/18 00:00 06/16/18 04:00 Temperature 97.5 F L 98.3 F 98.4 F Pulse Rate 78 61 59 L Respiratory Rate 18 18 18 Blood Pressure 159/102 H 142/76 H 141/82 H Pulse Oximetry 98 96 97 06/16/18 08:00 06/16/18 12:00 Temperature 97.8 F 98.2 F Pulse Rate 66 77 Respiratory Rate 19 18 Blood Pressure 136/89 127/89 Pulse Oximetry 96 97 Intake & Output 06/15/18 06/16/18 06/16/18 18:59 06:59 18:59 Weight 83.6 kg Other: # Voids 4 Date of Last Bowel Movement 06/14/18 06/16/18 # Bowel Movements 1 1 <Mary Chapin D - 06/16/18 16:32> - Constitutional no acute distress <Mary Chapin D - 06/16/18 16:32> - Routine HEENT Exam Head: Present: normocephalic <JoshuakatherineMary D 06/16/18 16:32> Eye: Present: EOMI, PERRL <TavaresMary D - 06/16/18 16:32> Comments: Patient still with mild left-sided facial droop <JoshualatriceMary D - 06/16/18 16:32> - Routine Neck Exam Present: supple <Mary Chapin D - 06/16/18 16:32> - Routine Respiratory Exam Present: CTA bilaterally. Absent: accessory muscle use <Mary Chapin D - 16:32> - Routine Cardiovascular Exam Present: RRR, S1, S2. Absent: murmur, gallop, rubs <Mary Chapin 16:32> - Routine Abdominal Exam Present: soft, normoactive bowel sounds. Absent: tenderness, distended, rebound , guarding <Mary Chapin 06/16/18 16:32> - Routine Extremities Exam Present: pulses intact. Absent: cyanosis, clubbing, edema, calf tenderness < Mary Chapin 06/16/18 16:32> Comments: Patient with slightly improved strength in extremities compared to day of admission however he will benefit from continue physical therapy to regain strength since having his stroke. <Mary Chapin 06/16/18 16:32> - Routine Neurological Exam Present: alert, oriented X3. Absent: normal speech (Slurred speech stable), tremors <Mary Chapin 06/16/18 16:32> - Routine Psychiatric Exam Present: normal affect. Absent: suicidal ideation <Mary Chapin 16:32> Assessment and Plan - Assessment (1) CVA (cerebral vascular accident) Code(s): I63.9 - Cerebral infarction, unspecified Status: Acute Onset Date: ~06/10/18 (2) Frequent falls Code(s): R29.6 - Repeated falls Status: Acute (3) Nutrition, metabolism, and development symptoms Code(s): R63.8 - Other symptoms and signs concerning food and fluid intake Status: Acute <Libby Joaquin - 06/19/18 14:09> (1) CVA (cerebral vascular accident) Code(s): I63.9 - Cerebral infarction, unspecified Status: Acute Plan: Patient presented with generalized feeling of weakness and feeling of "not feeling like myself". 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 Per brain MRI there was a small punctate area of acute infarction as well as an acute infarct in the posterior right temporal region at the pompa-white junction. EEG was normal. - Echo completed: EF of 50-55%. [id number] mitral valve regurg. Mild tricuspid regurg - Neck CT showed atherosclerotic elongation in left carotid artery. - MRA of the head showed irregularity along the posterior wall of the left middle cerebral artery with luminal narrowing of approx 50%. Mild wall irregularity identified within international representative bilaterally. - Follow Neuro recommendations Patient to continue aspirin 81 mg and Plavix 75 daily. Discontinue aspirin 81 mg after 3 months Patient will need event monitor/Holter - Case management working for placement in inpatient rehab as he has old stroke plus new CVA. He is very motivated to gain strength and independence. Placement pending insurance authorization. 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 This patient normally uses walker to ambulate but has had increasing falls even with the use of a cane. Patient is currently being evaluated as stated above. Patient had fall 2 night ago after trying to ambulate around his room independently. PT recommendations include inpatient rehab which is currently being organized by case management. -Patient educated to call for nursing staff for assistance when wanting to ambulate/ (3) Weakness Code(s): R53.1 - Weakness Status: Acute Plan: See plan for CVA. -Plan for rehabilitation at facility pending insurance authorization. (4) Nutrition, metabolism, and development symptoms Code(s): R63.8 - Other symptoms and signs concerning food and fluid intake Status: Acute Plan: Fluids: IV fluids no longer indicated at this time. Electrolytes: Replete as needed. Nutrition: Cardiac and Renal diet ordered as he passed his swallowing eval DVT prophylaxis: Heparin 5,000 SQ Q8Hr <Mary Chapin - 06/16/18 16:15> - Assessment and Plan The exam, history, and the medical decision-making described in the above note were completed with the assistance of the resident physician. I reviewed and agree with the findings presented. I attest that I had a [id number] encounter with the patient on the same day, and personally performed and documented my assessment and findings in the medical record. Witnessed patient trying to do whatever he could for himself. He is a kind cooperative man who is very ready to do whatever work needs to be done to be improved and go back home. <Mary Chapin - 06/16/18 16:32> - Attending Attestation The exam, history, and the medical decision-making described in the above note were completed with the assistance of the resident physician. I reviewed and agree with the findings presented. I attest that I had a [id number] encounter with the patient on the same day, and personally performed and documented my assessment and findings in the medical record. doing well overall <Libby Joaquin M - 06/19/18 14:09> <Mary Chapin D - Last Filed: 06/16/18 16:15> (1) CVA (cerebral vascular accident) Qualifiers: CVA mechanism: occlusion Precerebral and cerebral artery: unspecified cerebral artery Qualified Code(s): I63.50 - Cerebral infarction due to unspecified occlusion or stenosis of unspecified cerebral artery <Libby Joaquin M - Last Filed: 06/19/18 14:09> (1) CVA (cerebral vascular accident) Qualifiers: CVA mechanism: stenosis Precerebral and cerebral artery: middle cerebral artery Laterality of affected vessel: left Qualified Code(s): I63.512 - Cerebral infarction due to unspecified occlusion or stenosis of left middle cerebral artery <Mary Chapin D - Last Filed: 06/16/18 16:15> (1) CVA (cerebral vascular accident) Qualifiers: CVA mechanism: occlusion Precerebral and cerebral artery: unspecified cerebral artery Qualified Code(s): I63.50 - Cerebral infarction due to unspecified occlusion or stenosis of unspecified cerebral artery <Libby Joaquin - Last Filed: 06/19/18 14:09> (1) CVA (cerebral vascular accident) Qualifiers: CVA mechanism: stenosis Precerebral and cerebral artery: middle cerebral artery Laterality of affected vessel: left Qualified Code(s): I63.512 - Cerebral infarction due to unspecified occlusion or stenosis of left middle cerebral artery
[2018-06-17] MEDS: Heparin - SQ 10,000 UNITS/ML Vial SQ SCH (05:51)
[2018-06-17 07:18] LABS: Calcium 8.9 mg/dL (8.5-10.1); Carbon Dioxide 26.8 meq/L (21.0-32.0)
[2018-06-17] MEDS: Lisinopril 20 MG Tablet PO SCH (08:04)
[2018-06-17] MEDS: amLODIPine 10 MG Tablet PO SCH (08:04)
--- NOTE | 2018-06-17 09:46 | P.PNFP ---
Subjective Interval history: Patient was seen at bedside this morning. Patient's mother was present for interview. There were no acute events overnight and he reports feeling overall well. Patient continues to report improvement and can now walk to the bathroom with minimal assistance. Patient is highly motivated and eager to continue to progress towards his rehabilitation, but it was discussed with the patient the possible limitations of his current insurance. Patient is committed to recovering. He denies any subjective fevers, chills, shortness of breath, chest pain, nausea, or vomiting. All questions were answered to the patient's satisfaction. <Joshua Roberson O - 06/17/18 16:43> Results - Labs Result diagrams: 06/14/18 09:41 06/17/18 05:35 <Libby Joaquin - 06/19/18 17:13> Abnormal lab results 06/17/18 Range/Units 05:35 Chloride 110 H (98-107) meq/L Creatinine 1.44 H (0.60-1.30) mg/dL Estimated GFR 64 L (>89) mL/min BMP 06/17/18 05:35 Sodium 145 Potassium 4.0 Chloride 110 H Carbon Dioxide 26.8 BUN 17 Creatinine 1.44 H Calcium 8.9 <Joshua Roberson - 06/17/18 09:46> Physical Exam Vital signs: Vital Signs 06/16/18 12:00 06/16/18 16:00 06/16/18 20:00 Temperature 98.2 F 98.4 F 97.8 F Pulse Rate 77 82 77 Respiratory Rate 18 16 16 Blood Pressure 127/89 148/86 H 122/86 Pulse Oximetry 97 95 97 06/17/18 00:00 06/17/18 04:00 06/17/18 07:54 Temperature 97.8 F 97.8 F 97.1 F L Pulse Rate 79 66 68 Respiratory Rate 16 17 17 Blood Pressure 153/81 H 150/94 H 148/94 H Pulse Oximetry 97 96 96 Intake & Output 06/16/18 06/17/18 06/17/18 18:59 06:59 18:59 Intake Total 960 / 960 240 / 240 Output Total Balance 960 / 960 239 / 239 Weight 85 kg Intake: Oral 960 / 960 240 / 240 Output: Urine Other: # Voids 7 2 # Incontinent Voids 1 Date of Last Bowel Movement 06/16/18 06/17/18 06/17/18 # Bowel Movements 4 1 <Joshua Roberson 06/17/18 09:46> - Constitutional no acute distress, average body habitus, cooperative <Joshua Roberson 09:46> - Routine HEENT Exam Head: Present: normocephalic, atraumatic <Joshua Roberson 06/17/18 09:46> Eye: Present: EOMI, normal accommodation <Joshua Roberson 06/17/18 09:46> ENT: Present: mucous membranes moist <Joshua Roberson 06/17/18 09:46> - Routine Respiratory Exam Present: CTA bilaterally. Absent: accessory muscle use, decreased breath sounds , prolonged expiratory phase, rales, respiratory distress, rhonchi, stridor, wheezes, crackles, distant breath sounds, diminished air movement <Joshua Roberson 06/17/18 09:46> - Routine Cardiovascular Exam Present: RRR, S1, S2 <Joshua Roberson 06/17/18 09:46> - Routine Abdominal Exam Present: soft, normoactive bowel sounds. Absent: tenderness, distended, rebound , guarding <Joshua Roberson 06/17/18 09:46> - Routine Extremities Exam Present: pulses intact. Absent: cyanosis, clubbing, edema, calf tenderness < Joshua Roberson 06/17/18 09:46> - Routine Skin Exam Present: intact, cyanosis. Absent: erythema, dry <Joshua Roberson 06/17/18 09 :46> - Routine Neurological Exam Present: alert, oriented X3, CN II-XII intact, moving all extremities, vision grossly intact, hearing grossly intact, normal speech. Absent: altered mental status, facial asymmetry <Joshua Roberson 06/17/18 09:46> Patient greatly improved from previous exam. Alert and oriented 3. Facial droop/asymmetry greatly reduced and very difficult to notice. All cranial nerves grossly intact. On uplands division director strength his left uplands division director was 4 out of 5 in his right 5 out of 5. Patient only was able to use all extremities with with very little to no restriction. Strength of the left side of his body is 4\\5 compared to the right 5\\5. Finger to nose exam also much improved with little to no difficulty and at this point is grossly normal. Patient does report some double vision in his peripheral left vision which was there previously and residual from previous stroke. Patient continues to improve significantly every day. <Joshua Roberson - 06/17/18 16:43> - Detailed Neurological Exam: Coma Scale Eye Opening: Spontaneous <Joshua Roberson 06/17/18 09:46> Verbal Response: Oriented <Joshua Roberson 06/17/18 09:46> Motor Response: Obey commands <Joshua Roberson 06/17/18 09:46> Tita Coma Scale Total: 15 <Joshua Roberson 06/17/18 16:48> - Routine Psychiatric Exam Present: normal affect, normal thought process, cooperative, good insight, good judgment. Absent: anxious, agitated <Joshua Roberson 06/17/18 09:46> Assessment and Plan - Assessment (1) CVA (cerebral vascular accident) Code(s): I63.9 - Cerebral infarction, unspecified Status: Acute Onset Date: ~06/10/18 (2) Frequent falls Code(s): R29.6 - Repeated falls Status: Acute (3) Nutrition, metabolism, and development symptoms Code(s): R63.8 - Other symptoms and signs concerning food and fluid intake Status: Acute <Libby Joaquin - 06/19/18 17:13> (1) CVA (cerebral vascular accident) Code(s): I63.9 - Cerebral infarction, unspecified Status: Acute Onset Date: ~06/10/18 Plan: Patient presented with generalized feeling of weakness and feeling of "not feeling like myself". 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 Per brain MRI there was a small punctate area of acute infarction as well as an acute infarct in the posterior right temporal region at the pompa-white junction. EEG was normal. Echo completed: EF of 50-55%. Ekpm-ye-[id number] mitral valve regurg. Mild tricuspid regurg. Neck CT showed atherosclerotic elongation in left carotid artery. MRA of the head showed irregularity along the posterior wall of the left middle cerebral artery with luminal narrowing of approx 50%. Mild wall irregularity identified within wrapper counter bilaterally. Patient will greatly benefit from rehabilitation. -Admit to [facility] for inpatient rehabilitation for comprehensive rehabilitation evaluation and treatment. - Follow Neuro recommendations Patient to continue aspirin 81 mg and Plavix 75 daily. Discontinue aspirin 81 mg after 3 months Patient will need event monitor/Holter (2) Frequent falls Code(s): R29.6 - Repeated falls Status: Acute Plan: This patient has residual left sided motor deficit from previous CVA. This patient normally uses walker to ambulate but has had increasing falls even with the use of a cane. Patient had fall 3 nights ago after trying to ambulate around his room independently. Patient has shown great improvement and is able to ambulate to the bathroom with minimal assistance. PT recommendations include inpatient rehab. -Patient is motivated and would greatly benefit from rehabilitation. (3) Nutrition, metabolism, and development symptoms Code(s): R63.8 - Other symptoms and signs concerning food and fluid intake Status: Acute Plan: Fluids: IV fluids no longer indicated at this time. Electrolytes: Replete as needed. Nutrition: Cardiac and Renal diet ordered as he passed his swallowing eval DVT prophylaxis: Heparin 5,000 SQ Q8Hr <Joshua Roberson 06/17/18 16:46> - Assessment and Plan The exam, history, and the medical decision-making described in the above note were completed with the assistance of the resident physician. I reviewed and agree with the findings presented. I attest that I had a [id number] encounter with the patient on the same day, and personally performed and documented my assessment and findings in the medical record. Witnessed patient trying to do whatever he could for himself. He is a kind cooperative man who is very ready to do whatever work needs to be done to be improved and go back home. <Joshua Roberson 06/17/18 09:46> - Attending Attestation The exam, history, and the medical decision-making described in the above note were completed with the assistance of the resident physician. I reviewed and agree with the findings presented. I attest that I had a [id number] encounter with the patient on the same day, and personally performed and documented my assessment and findings in the medical record. So happy that his insurance finally approved him to go for inpatient rehab. He deserves this as he is a very hard worker and very motivated to get back to independence. <JemalGiorgioLibby M - 06/19/18 17:13> <Joshua Roberson O - Last Filed: 06/17/18 16:46> (1) CVA (cerebral vascular accident) Qualifiers: CVA mechanism: stenosis Precerebral and cerebral artery: middle cerebral artery Laterality of affected vessel: left Qualified Code(s): I63.512 - Cerebral infarction due to unspecified occlusion or stenosis of left middle cerebral artery <Libby Joaquin M - Last Filed: 06/19/18 17:13> (1) CVA (cerebral vascular accident) Qualifiers: CVA mechanism: stenosis Precerebral and cerebral artery: middle cerebral artery Laterality of affected vessel: left Qualified Code(s): I63.512 - Cerebral infarction due to unspecified occlusion or stenosis of left middle cerebral artery <Joshua Roberson O - Last Filed: 06/17/18 16:46> (1) CVA (cerebral vascular accident) Qualifiers: CVA mechanism: stenosis Precerebral and cerebral artery: middle cerebral artery Laterality of affected vessel: left Qualified Code(s): I63.512 - Cerebral infarction due to unspecified occlusion or stenosis of left middle cerebral artery <Libby Joaquin - Last Filed: 06/19/18 17:13> (1) CVA (cerebral vascular accident) Qualifiers: CVA mechanism: stenosis Precerebral and cerebral artery: middle cerebral artery Laterality of affected vessel: left Qualified Code(s): I63.512 - Cerebral infarction due to unspecified occlusion or stenosis of left middle cerebral artery
--- NOTE | 2018-06-29 00:36 | P.DS ---
Date of admission: 06/11/18 10:20 Primary care physician: UNKNOWN Brief History from admission: Patient is a 47 year old M with pmhx of CVA with residual left sided weakness who presented to the ED for evaluation of increased falls. Patient reported a 1 day history of not feeling like himself and a feeling of unsteadiness. This feeling began earlier the morning of admission. Although he now feels more like himself he still feels uneasy and will not attempt to walk for fear of falling. Patient lives with his cousin who works in the medical field and suggested he seek medial attention. Patient reported dizziness earlier that self resolved after a few minutes, experienced momentary double vision in his left eye but at no time loss any motor function, sensation, or consciousness. He reports no falls today and denies any chest pain, recent illnesses, nausea, vomiting, fevers or chills. His MRI showed evidence of an acute CVA. He had some acute kidney injury and was not able to get gadolinium so the MRI was done without contrast. DS: Diagnosis - Discharge Diagnosis (1) CVA (cerebral vascular accident) Status: Acute (2) Frequent falls Status: Acute (3) Weakness Status: Deleted DS: Summary Hospital Course: Patient is a 47 year old M with pmhx of CVA with residual left sided weakness who presented to the ED for evaluation of increased falls. On admission patient also reported a 1 day history of not feeling like himself and a feeling of unsteadiness. On hospital workup patient was found to have suffered an acute stroke on MRI involving the corpus callosum on the left side. Stroke protocol was initiated and neurology was consulted. Patient neck MRA and carotid Dopplers were unremarkable. Patient was hemodynamically stable upon discharge and was discharged to [place] rehab to continue strengthening. - Time Spent with Patient Total time spent providing and/or coordinating discharge services: - Quality: VTE Deep Vein Thrombosis/Pulmonary Embolism Present on Admission: No Exam Narrative: - Constitutional no acute distress, average body habitus, cooperative - Routine HEENT Exam Head: Present: normocephalic, atraumatic Eye: Present: EOMI, normal accommodation ENT: Present: mucous membranes moist - Routine Respiratory Exam Present: CTA bilaterally. Absent: accessory muscle use, decreased breath sounds , prolonged expiratory phase, rales, respiratory distress, rhonchi, stridor, wheezes, crackles, distant breath sounds, diminished air movement - Routine Cardiovascular Exam Present: RRR, S1, S2 - Routine Abdominal Exam Present: soft, normoactive bowel sounds. Absent: tenderness, distended, rebound , guarding - Routine Extremities Exam Present: pulses intact. Absent: cyanosis, clubbing, edema, calf tenderness - Routine Skin Exam Present: intact, cyanosis. Absent: erythema, dry - Routine Neurological Exam Present: alert, oriented X3, CN II-XII intact, moving all extremities, vision grossly intact, hearing grossly intact, normal speech. Absent: altered mental status, facial asymmetry Patient greatly improved from previous exam. Alert and oriented 3. Facial droop/asymmetry greatly reduced and very difficult to notice. All cranial nerves grossly intact. On shipper receiver strength his left shipper receiver was 4 out of 5 in his right 5 out of 5. Patient only was able to use all extremities with with very little to no restriction. Strength of the left side of his body is 4\5 compared to the right 5\5. Finger to nose exam also much improved with little to no difficulty and at this point is grossly normal. Patient does report some double vision in his peripheral left vision which was there previously and residual from previous stroke. Patient continues to improve significantly every day. <Roberson,Jose Alfonzo - 06/17/18 16:43> - Detailed Neurological Exam: Coma Scale Eye Opening: Spontaneous Verbal Response: Oriented Motor Response: Obey commands [place] Coma Scale Total: 15 - Routine Psychiatric Exam Present: normal affect, normal thought process, cooperative, good insight, good judgment. Absent: anxious, agitated Results Procedures completed during hospitalization: none - Impressions ITS Impressions Head CT 06/10/18 15:40 CONCLUSION: 1. No acute abnormality seen. No areas of hemorrhage or mass effect are seen. 2. Decreased density in the periventricular white matter related to fairly widespread demyelination. 3. Old lacunar infarct at the right thalamus. Carotid Doppler Study 06/11/18 00:00 CONCLUSION: Abnormal left carotid. CT angiography may be of benefit to evaluate the arch and left carotid bifurcation. Head MRI 06/11/18 00:00 CONCLUSION: Small punctate area of acute infarction. At the pompa-white junction in the posterior right temporal region characteristic of acute infarct There is extensive restricted diffusion involving the corpus callosum on the left side. This is unusual for typical vascular disease and considering the extensive white matter abnormalities this may reflect multiple sclerosis. Correlation with clinical findings is recommended. Neck MRA 06/11/18 00:00 CONCLUSION: 1. Both the right and left carotid appear patent. There is no hemodynamically significant stenosis. 2. Extreme tortuosity was compromising the ultrasound exam. _ Percent stenosis is calculated using the diameter of the stenotic region over the diameter of the normal distal internal carotid artery _ Head MRA 06/13/18 00:00 CONCLUSION: 1. Irregularity along the posterior wall of the left middle cerebral artery with luminal narrowing approximately 50%. Mild wall irregularity is identified within the bilateral posterior cerebral arteries. Discharge Plan - Discharge Disposition Patient Disposition: [facility] Inpatient - Discharge Condition Condition: Stable - Discharge Order Discharge Orders: Discharge Order (Routine); Ordered 06/17/18 Ordered By: Libby Joaquin - Discharge Details Anticipated Discharge Date: 06/15/18 Discharge Comment: Pending insurance approval by [facility] rehab - Physicians Team Primary Care Provider: UNKNOWN, Attending Provider: Libby Joaquin Other Providers: Francisca Belcher MD ; [employer],Insurance
== END 2018-06-17 11:19 ==
LOC: NEDA 14:11 → NEPD 14:11 → NEPHCDU 20:33 → N05 06-13 17:55
PROVIDERS: ADMIT Family Medicine; ATTEND Family Medicine